=== PATIENT | male | born 1990 | race Two or more races ===

== ENCOUNTER 2020-08-02 00:22 | Inpatient (IN) | payer MEDICAID ==
[~2020-08-02] VITALS: Ht 177.8 cm; Wt 70.4 kg
[2020-08-02] VITALS (19 sets, daily range): BP systolic 98–151; BP diastolic 4–96
--- NOTE | 2020-08-02 00:30 | NUR ---
ED Nurse Note: Patient brought in by ambulance [id number], per EMS patient was found unconcious in seat of car unresponsive. Patient was given Narcan 4mg prior to arrival by EMS. Patient regained consciousness after Narcan but unable to answer any questions or follow commands. Unable to obtain information from patient at this time. Patient noted to be tachycardic 120-140 bpm O2 sat at 88-91% on 15L NRB, tachypneic 30-40 respirations. Patient placed on salesperson handbags upon arrival and changed into gown. EMS inserted 18g Right EJ, patent but unable to draw blood samples. Right AC 18g established, blood drawn and sent to lab with urine.
[2020-08-02] MEDS ORDERED: Naloxone 1mg/ml 2ml ONE (00:38)
[2020-08-02 00:43] LABS: APPEARANCE,URINE CLEAR; BASOPHILS % (AUTO) 1.2 % (0.0-2.0); BILIRUBIN, URINE NEGATIVE (NEGATIVE); COLOR,URINE PALE YELLOW; GLUCOSE, URINE (UA) NEGATIVE (NEGATIVE); HEMATOCRIT 48.1 % (42.0-52.0); HEMOGLOBIN 16.7 G/DL (14.2-18.0); KETONES,URINE NEGATIVE (NEGATIVE); LEUKOCYTE ESTERASE ,URINE NEGATIVE (NEGATIVE); LYMPHOCYTES % (AUTO) 7.6 % (20.0-45.0); MEAN CORPUSCULAR VOLUME 90 FL (80-99); MONOCYTES % (AUTO) 10.4 % (1.0-10.0); NEUTROPHILS % (AUTO) 80.8 % (45.0-75.0); NITRITE,URINE NEGATIVE (NEGATIVE); PH,URINE 7 (4.5-8.0); PLATELET COUNT 224 K/UL (150-450); PROTEIN,URINE NEGATIVE (NEGATIVE); RED BLOOD COUNT 5.37 M/UL (4.70-6.10); RED CELL DISTRIBUTION WIDTH 11.4 % (11.6-14.8); UROBILINOGEN,URINE NORMAL MG/DL (0.0-1.0); WHITE BLOOD COUNT 10.4 K/UL (4.8-10.8)
[2020-08-02] MEDS ORDERED: Naloxone 1mg/ml 2ml IVP ONE ×2 (00:45→01:00)
[2020-08-02 00:53] LABS: ANION GAP 10 mmol/L (5-15); BLOOD UREA NITROGEN 42 mg/dL (7-18); CALCIUM 7.7 MG/DL (8.5-10.1); CARBON DIOXIDE 25 MMOL/L (21-32); CHLORIDE 98 MMOL/L (98-107); POTASSIUM 4.8 MMOL/L (3.5-5.1); SODIUM 133 MMOL/L (136-145)
--- NOTE | 2020-08-02 00:54 | Emergency Room Report ---
History of Present Illness General Chief Complaint: Overdose Source: EMS Present Illness HPI Disclaimer: Please note that this report is being documented using DRAGON technology. This can lead to erroneous entry secondary to incorrect interpretation by the dictating instrument. HPI: Approximately 29-year-old male brought in his Huey Fuentes by [employer] after being found unconscious in the front seat of a car. Suspected overdose he was given Narcan. Unknown if there was an effect. Patient is not providing any history. He is tachycardic and tachypneic though oxygen sats are approximately 88%. 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 EOMI. pupils are approximately 3 mm and reactive bilaterally. Cardiovascular: Tachycardic. S1 and S2 normal. No murmur appreciated Resp: Normal work of breathing. No cough, wheezing or crackles appreciated Abdomen: Abdomen is soft, nondistended. Nontender Skin: Diaphoretic, intact MSK: Normal tone and bulk. Moving all extremities. No obvious deformity. Neuro: Awake, GCS 10 Procedures Critical Care Time Critical Care Time Total critical care time: Approximately 45 minutes Due to a high probability of clinically significant, life threatening deterioration, the patient required the highest level of preparedness to intervene emergently and I personally spent this critical care time directly and personally managing the patient. This critical care time included obtaining a history, examining the patient, pulse oximetry, ordering and reviewing studies, ordering treatments, evaluating response to treatment and updating management plan as needed, frequent reassessment and discussion with other providers as well as arranging for ultimate disposition. This critical to care time was performed to assess and manage the high probability of life-threatening deterioration that could result in multiorgan failure. This critical care time is separate from the separately billable procedures and treating other patients. Medical Decision Making Diagnostic Impression: Primary Impression: Amphetamine abuse Additional Impressions: Pneumonia JULIANA (acute kidney injury) Elevated LFTs Rhabdomyolysis ER Course Approximately 29-year-old Huey Fuentes brought in for altered level of consciousness suspected overdose. Patient placed on nonrebreather. He is tachycardic and tachypneic. Suspected sympathomimetic syndrome though other toxicologic reasons, dehydration, electrolyte abnormalities on the differential. Chest x- ray concerning for right lower lobe pneumonia. CT scan of the head does not show obvious intracranial injury. CT scan of the chest without contrast was performed showing bilateral infiltrates. Lactate and blood cultures were ordered. Patient treated with Zosyn. Will require admission. Sepsis reevaluation: I, Dr. Ted Castañeda, reevaluated the patient Capillary refill: Less than 2 seconds MAP: 90 Heart rate: 120 Respiratory rate: 20 Initial Lactate: 2.4 Repeat Lactate: Pending Pressors: Not indicated No signs of fluid overload 0530 CK returned elevated. LFTs elevated. Continues to receive IV fluid. Mentation improving. He has provided his name but no other identifiers. He is admitted to panel physician, Dr. Madera Laboratory Tests Test 08/02/20 00:21 08/02/20 03:27 08/02/20 03:33 White Blood Count 10.4 K/UL (4.8-10.8) Red Blood Count 5.37 M/UL (4.70-6.10) Hemoglobin 16.7 G/DL (14.2-18.0) Hematocrit 48.1 % (42.0-52.0) Mean Corpuscular Volume 90 FL (80-99) Mean Corpuscular Hemoglobin 31.1 PG (27.0-31.0) H Mean Corpuscular Hemoglobin Concent 34.6 G/DL (32.0-36.0) Red Cell Distribution Width 11.4 % (11.6-14.8) L Platelet Count 224 K/UL (150-450) Mean Platelet Volume 7.2 FL (6.5-10.1) Neutrophils (%) (Auto) 80.8 % (45.0-75.0) H Lymphocytes (%) (Auto) 7.6 % (20.0-45.0) L Monocytes (%) (Auto) 10.4 % (1.0-10.0) H Eosinophils (%) (Auto) 0.0 % (0.0-3.0) Basophils (%) (Auto) 1.2 % (0.0-2.0) Urine Color Pale yellow Urine Appearance Clear Urine pH 7 (4.5-8.0) Urine Specific [place] 1.005 (1.005-1.035) Urine Protein Negative (NEGATIVE) Urine Glucose (UA) Negative (NEGATIVE) Urine Ketones Negative (NEGATIVE) Urine Blood 1+ (NEGATIVE) H Urine Nitrite Negative (NEGATIVE) Urine Bilirubin Negative (NEGATIVE) Urine Urobilinogen Normal MG/DL (0.0-1.0) Urine Leukocyte Esterase Negative (NEGATIVE) Urine RBC 0-2 /HPF (0 - 0) H Urine WBC 0-2 /HPF (0 - 0) Urine Squamous Epithelial Cells Few /LPF (NONE/OCC) Urine Bacteria None /HPF (NONE) Sodium Level 133 MMOL/L (136-145) L Potassium Level 4.8 MMOL/L (3.5-5.1) Chloride Level 98 MMOL/L (98-107) Carbon Dioxide Level 25 MMOL/L (21-32) Anion Gap 10 mmol/L (5-15) Blood Urea Nitrogen 42 mg/dL (7-18) H Creatinine 2.0 MG/DL (0.55-1.30) H Estimated Glomerular Filtration Rate 39.4 mL/min (>60) Glucose Level 174 MG/DL (74-106) H Calcium Level 7.7 MG/DL (8.5-10.1) L Total Bilirubin 0.6 MG/DL (0.2-1.0) Aspartate Amino Transferase (AST) 834 U/L (15-37) H Alanine Aminotransferase (ALT) 1144 U/L (12-78) H Alkaline Phosphatase 81 U/L (46-116) Total Protein 8.1 G/DL (6.4-8.2) Albumin 3.9 G/DL (3.4-5.0) Globulin 4.2 g/dL Albumin/Globulin Ratio 0.9 (1.0-2.7) L Urine Opiates Screen Negative (NEGATIVE) Urine Barbiturates Screen Negative (NEGATIVE) Phencyclidine (PCP) Screen Negative (NEGATIVE) Urine Amphetamines Screen Positive (NEGATIVE) H Urine Benzodiazepines Screen Negative (NEGATIVE) Urine Cocaine Screen Negative (NEGATIVE) Urine Marijuana (THC) Screen Positive (NEGATIVE) H Serum Alcohol < 3 mg/dL Arterial Blood pH 7.254 (7.350-7.450) Arterial Blood Partial Pressure CO2 52.1 mmHg (35.0-45.0) H Arterial Blood Partial Pressure O2 81.0 mmHg (75.0-100.0) Arterial Blood HCO3 22.5 mmol/L (22.0-26.0) Arterial Blood Oxygen Saturation 93.6 % (95-100) L Arterial Blood Base Excess -5.1 (-2-2) L Mario Test Positive Lactic Acid Level Pending Microbiology Date/Time Source Procedure Growth Status 08/02/20 02:30 Nasopharynx SARS-CoV-2 RdRp Gene Assay - Final Complete EKG Diagnostic Results EKG Time: 01:06 Rate: tachycardiac Other Impression Sinus tachycardia, normal axis, normal intervals, no ST segment changes. Irregular baseline makes it difficult to interpret type Rhythm Strip Diag. Results Rhythm Strip Time: 01:06 EP Interpretation: yes Rate: 130s Rhythm: NSR, no PVC's, no ectopy Chest X-Ray Diagnostic Results Chest X-Ray Diagnostic Results : Chest X-Ray Ordered: Yes Indication: Shortness of Breath EP Interpretation: Yes Interpretation: other - Right lower lobe consolidation Impression: Other - Right lower lobe consolidation concerning for pneumonia Electronically Signed by: Electronically signed by Dr. Ted Castañeda CT/MRI/US Diagnostic Results CT/MRI/US Diagnostic Results : Impression Final Report EXAM: CT Head Without Intravenous Contrast CLINICAL HISTORY: AMS TECHNIQUE: Axial computed tomography images of the head/brain without intravenous contrast. CTDI is 53.40 mGy and DLP is 1125.70 mGy-cm. One or more of the following dose reduction techniques were used: automated exposure control, adjustment of the mA and/or kV according to patient size, use of iterative reconstruction technique. COMPARISON: No relevant prior studies available. FINDINGS: No acute intracranial hemorrhage. No midline shift or mass effect. The territorial govea-white matter differentiation is maintained throughout. The ventricles and sulci are commensurate for age. The visualized orbits appear grossly unremarkable. The calvarium is intact. The visualized paranasal sinuses and mastoid air cells are grossly clear. IMPRESSION: No acute intracranial hemorrhage, midline shift, or mass effect. See concomitant chest CT scan where there is extensive infiltrate in the lung bases. Radiologist: Josh Chapin MD Electronically Signed: 08/02/20 03:31 Final Report EXAM: CT Chest Without Intravenous Contrast CLINICAL HISTORY: AMS TECHNIQUE: Axial computed tomography images of the chest without intravenous contrast. CTDI is 8.0 mGy and DLP is 271.60 mGy-cm. One or more of the following dose reduction techniques were used: automated exposure control, adjustment of the mA and/or kV according to patient size, use of iterative reconstruction technique. COMPARISON: No relevant prior studies available. FINDINGS: LUNGS: Severe consolidations at the lung bases consistent with severe multifocal infiltrate. Correlate for aspiration. HEART: Within normal limits. VASCULATURE: Within normal limits without contrast. THYROID: Within normal limits. MEDIASTINUM & LYMPHADENOPATHY: There are no pathologically enlarged mediastinal, hilar, or axillary lymph nodes. SUPERIOR ABDOMEN: The included portions of the superior abdomen are within normal limits. MUSCULOSKELETAL: Within normal limits. IMPRESSION: Severe consolidations at the lung bases consistent with severe multifocal infiltrate. Correlate for aspiration. Radiologist: Josh Chapin MD Electronically Signed: 08/02/20 03:34 Study ready at 03:15 and initial results transmitted at 03:34 Last Vital Signs Date Time Temp Pulse Resp B/P (MAP) Pulse Ox O2 Delivery O2 Flow Rate FiO2 08/02/20 00:23 100.9 145 45 126/63 (84) 90 Non-Rebreather 15.0 Disposition: ADMITTED INPATIENT Condition: Serious Scripts Unable to Obtain Active Prescriptions or Reported Meds Referrals: NOT CHOSEN IPA/,REFERRING (PCP) Ted Castañeda MD Aug 02, 2020 00:54
[2020-08-02 01:02] LABS: ALANINE AMINOTRANSFERASE 1144 U/L (12-78); ALBUMIN 3.9 G/DL (3.4-5.0); ALBUMIN/GLOBULIN RATIO 0.9 (1.0-2.7); ALKALINE PHOSPHATASE 81 U/L (46-116); ASPARTATE AMINO TRANSFERASE 834 U/L (15-37); BILIRUBIN,TOTAL 0.6 MG/DL (0.2-1.0)
[2020-08-02] MEDS ORDERED: LORazepam Inj 2mg/ml 1ml IV ONE ×2 (01:15→02:15)
--- NOTE | 2020-08-02 01:19 | NUR ---
ED Nurse Note: Xray at bedside
--- NOTE | 2020-08-02 02:16 | Diagnostic Imaging Report ---
EXAM: XR Chest, 1 View CLINICAL HISTORY: SOB TECHNIQUE: Frontal view of the chest. COMPARISON: No relevant prior studies available. FINDINGS/IMPRESSION: Consolidation in the right lung base, suspicious for infiltrate. Probable, small right parapneumonic effusion. Follow-up chest radiograph recommended. No pneumothorax. Mildly prominent heart size for the patient's age.
[2020-08-02] MEDS ORDERED: Piperacillin/Tazobactam 3.375 GM in NS 110 ML IVPB ONE (03:15)
--- NOTE | 2020-08-02 03:30 | NUR ---
ED Nurse Note: RT at bedside
--- NOTE | 2020-08-02 03:31 | Diagnostic Imaging Report ---
EXAM: CT Head Without Intravenous Contrast CLINICAL HISTORY: AMS TECHNIQUE: Axial computed tomography images of the head/brain without intravenous contrast. CTDI is 53.40 mGy and DLP is 1125.70 mGy-cm. One or more of the following dose reduction techniques were used: automated exposure control, adjustment of the mA and/or kV according to patient size, use of iterative reconstruction technique. COMPARISON: No relevant prior studies available. FINDINGS: No acute intracranial hemorrhage. No midline shift or mass effect. The territorial govea-white matter differentiation is maintained throughout. The ventricles and sulci are commensurate for age. The visualized orbits appear grossly unremarkable. The calvarium is intact. The visualized paranasal sinuses and mastoid air cells are grossly clear. IMPRESSION: No acute intracranial hemorrhage, midline shift, or mass effect. See concomitant chest CT scan where there is extensive infiltrate in the lung bases.
--- NOTE | 2020-08-02 03:35 | Diagnostic Imaging Report ---
EXAM: CT Chest Without Intravenous Contrast CLINICAL HISTORY: AMS TECHNIQUE: Axial computed tomography images of the chest without intravenous contrast. CTDI is 8.0 mGy and DLP is 271.60 mGy-cm. One or more of the following dose reduction techniques were used: automated exposure control, adjustment of the mA and/or kV according to patient size, use of iterative reconstruction technique. COMPARISON: No relevant prior studies available. FINDINGS: LUNGS: Severe consolidations at the lung bases consistent with severe multifocal infiltrate. Correlate for aspiration. HEART: Within normal limits. VASCULATURE: Within normal limits without contrast. THYROID: Within normal limits. MEDIASTINUM + LYMPHADENOPATHY: There are no pathologically enlarged mediastinal, hilar, or axillary lymph nodes. SUPERIOR ABDOMEN: The included portions of the superior abdomen are within normal limits. MUSCULOSKELETAL: Within normal limits. IMPRESSION: Severe consolidations at the lung bases consistent with severe multifocal infiltrate. Correlate for aspiration.
[2020-08-02 05:33] LABS: CREATINE KINASE 6771 U/L (26-308)
--- NOTE | 2020-08-02 05:56 | NUR ---
ED Nurse Note: Report given to BENNETT Browne.
--- NOTE | 2020-08-02 06:20 | NUR ---
NURSE NOTES: Received pt's report from BENNETT Hinds. Pt is lethargic, open eyes, not able to follow any commend. Pt is on non -breather mask 15 L. SpO2 95%. Pt's belonging list are checked, cannot be signed by pt. Pt's monitoring engineer initiated, sinus tachycardia noted. Pt has a suture on the right calf, blanchable redness on the buttocks. Pt is under care of
--- NOTE | 2020-08-02 06:20 | NUR ---
TRANSFER TO FLOOR: Patient transferred to SDU as ordered, per ERMD. Report given to BENNETT Browne. Patient transported via gurney on ACLS protocol on patient monitor accompanied by RN and machine operator slitter technician in stable condition.
--- NOTE | 2020-08-02 07:00 | NUR ---
RESPIRATORY NOTE: Pt successfully intubated @[address] Montague. ETT 7.5, 23cm at the lip, current settings AC rate 20, VT 480, FiO2 100%, PEEP +5. Suction pt with scant to small amount of trevino/yellow secretions. Alarms are on and audible. Plugged into red outlet. Ambubag at bedside. Will continue to monitor.
--- NOTE | 2020-08-02 07:00 | Emergency Room Report ---
History of Present Illness General Chief Complaint: Overdose Source: Medical Record, EMS Present Illness HPI Approximately 29-year-old male, unknown comorbidities presents with increasing altered mental status, no longer protecting his airway aggravated by drugs alleviated by not taking drugs severity is severe, constant symptoms started unknown, patient became progressively worse I went upstairs to the [facility] unit to intubate patient because his ABG worsened Allergies: Coded Allergies: UNABLE TO ASSESS (Unverified , 08/02/20) patient is not conscious COVID-19 Screening Contact w/high risk pt: No Experienced COVID-19 symptoms?: No COVID-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 Patient History Past Medical History: see triage record Reviewed Nursing Documentation: PMH: Agreed; PSxH: Agreed Nursing Documentation-PMH Past Medical History Deferred: Patient Unconscious Past Medical History: Deferred Review of Systems All Other Systems: limited Physical Exam Vital Signs Date Time Temp Pulse Resp B/P (MAP) Pulse Ox O2 Delivery O2 Flow Rate FiO2 08/02/20 00:23 100.9 145 45 126/63 (84) 90 Non-Rebreather 15.0 Sp02 EP Interpretation: abnormal - Hypoxic General Appearance: severe distress, Stupor Head: normocephalic Eyes: bilateral eye PERRL, bilateral eye EOMI ENT: normal pharynx, dry mucus membranes Neck: full range of motion, supple Respiratory: respiratory distress, decreased breath sounds, accessory muscle use, chest symmetrical Cardiovascular #1: no JVD, tachycardia Gastrointestinal: non tender, soft Neuologic: Unresponsive Skin: warm/dry Procedures Critical Care Time Critical Care Time Given the critical condition in which the patient arrived, the patient was immediately assessed by myself and the nurse, and cardiac monitoring initiated due to the potential for rapid decompensation of the patient's clinical condition. During the course of the patient's stay, I spent a considerable amount of time at the bedside performing serial re-evaluations of the patient's hemodynamic and clinical status because of the recognized potential threat to life or limb in this condition. I then had a chance to review not only all of the available current laboratory and radiographic studies obtained today, but I also reviewed old records available to me at the time. Additionally, any ancillary information available including oracle applications analyst records were reviewed. Sequential vital signs were obtained. Critical Care time of 30minutes was performed exclusive of billable procedures. Intubation Intubation : Consent: Emergent Time of Intubation: 06:59 Intubation Method: orotracheal Tube Size (cm): 7.5 Medications: Etomidate, Rocuronium Breath Sounds after Intubation: equal Intubation Complications: no complications Post Intubation Xray: Yes Progress/Xray Impression: ETT well seated Attempts: One Patient Tolerated: Well Complications: None Medical Decision Making Diagnostic Impression: Primary Impression: Amphetamine abuse Additional Impressions: Rhabdomyolysis Elevated LFTs JULIAAN (acute kidney injury) Pneumonia ER Course Patient with increasing altered mental status worsening blood gas, patient was emergently intubated, vent settings were titrated per [facility] Net protocol Patient transferred to ICU Laboratory Tests Test 08/02/20 00:20 08/02/20 00:21 08/02/20 03:27 08/02/20 03:33 Total Creatine Kinase 6771 U/L (26-308) H Salicylates Level 0.9 ug/mL (2.8-20) L Acetaminophen Level < 2 MCG/ML (10-30) L White Blood Count 10.4 K/UL (4.8-10.8) Red Blood Count 5.37 M/UL (4.70-6.10) Hemoglobin 16.7 G/DL (14.2-18.0) Hematocrit 48.1 % (42.0-52.0) Mean Corpuscular Volume 90 FL (80-99) Mean Corpuscular Hemoglobin 31.1 PG (27.0-31.0) H Mean Corpuscular Hemoglobin Concent 34.6 G/DL (32.0-36.0) Red Cell Distribution Width 11.4 % (11.6-14.8) L Platelet Count 224 K/UL (150-450) Mean Platelet Volume 7.2 FL (6.5-10.1) Neutrophils (%) (Auto) 80.8 % (45.0-75.0) H Lymphocytes (%) (Auto) 7.6 % (20.0-45.0) L Monocytes (%) (Auto) 10.4 % (1.0-10.0) H Eosinophils (%) (Auto) 0.0 % (0.0-3.0) Basophils (%) (Auto) 1.2 % (0.0-2.0) Urine Color Pale yellow Urine Appearance Clear Urine pH 7 (4.5-8.0) Urine Specific [place] 1.005 (1.005-1.035) Urine Protein Negative (NEGATIVE) Urine Glucose (UA) Negative (NEGATIVE) Urine Ketones Negative (NEGATIVE) Urine Blood 1+ (NEGATIVE) H Urine Nitrite Negative (NEGATIVE) Urine Bilirubin Negative (NEGATIVE) Urine Urobilinogen Normal MG/DL (0.0-1.0) Urine Leukocyte Esterase Negative (NEGATIVE) Urine RBC 0-2 /HPF (0 - 0) H Urine WBC 0-2 /HPF (0 - 0) Urine Squamous Epithelial Cells Few /LPF (NONE/OCC) Urine Bacteria None /HPF (NONE) Sodium Level 133 MMOL/L (136-145) L Potassium Level 4.8 MMOL/L (3.5-5.1) Chloride Level 98 MMOL/L (98-107) Carbon Dioxide Level 25 MMOL/L (21-32) Anion Gap 10 mmol/L (5-15) Blood Urea Nitrogen 42 mg/dL (7-18) H Creatinine 2.0 MG/DL (0.55-1.30) H Estimated Glomerular Filtration Rate 39.4 mL/min (>60) Glucose Level 174 MG/DL (74-106) H Calcium Level 7.7 MG/DL (8.5-10.1) L Total Bilirubin 0.6 MG/DL (0.2-1.0) Aspartate Amino Transferase (AST) 834 U/L (15-37) H Alanine Aminotransferase (ALT) 1144 U/L (12-78) H Alkaline Phosphatase 81 U/L (46-116) Total Protein 8.1 G/DL (6.4-8.2) Albumin 3.9 G/DL (3.4-5.0) Globulin 4.2 g/dL Albumin/Globulin Ratio 0.9 (1.0-2.7) L Urine Opiates Screen Negative (NEGATIVE) Urine Barbiturates Screen Negative (NEGATIVE) Phencyclidine (PCP) Screen Negative (NEGATIVE) Urine Amphetamines Screen Positive (NEGATIVE) H Urine Benzodiazepines Screen Negative (NEGATIVE) Urine Cocaine Screen Negative (NEGATIVE) Urine Marijuana (THC) Screen Positive (NEGATIVE) H Serum Alcohol < 3 mg/dL Arterial Blood pH 7.254 (7.350-7.450) Arterial Blood Partial Pressure CO2 52.1 mmHg (35.0-45.0) H Arterial Blood Partial Pressure O2 81.0 mmHg (75.0-100.0) Arterial Blood HCO3 22.5 mmol/L (22.0-26.0) Arterial Blood Oxygen Saturation 93.6 % (95-100) L Arterial Blood Base Excess -5.1 (-2-2) L Mario Test Positive Lactic Acid Level 2.40 mmol/L (0.4-2.0) H Test 08/02/20 05:00 08/02/20 05:59 Lactic Acid Level 3.50 mmol/L (0.66-2.22) H Arterial Blood pH 7.243 (7.350-7.450) Arterial Blood Partial Pressure CO2 61.5 mmHg (35.0-45.0) *H Arterial Blood Partial Pressure O2 71.8 mmHg (75.0-100.0) L Arterial Blood HCO3 25.9 mmol/L (22.0-26.0) Arterial Blood Oxygen Saturation 91.6 % (95-100) L Arterial Blood Base Excess -2.7 (-2-2) L Mario Test Positive Microbiology Date/Time Source Procedure Growth Status 08/02/20 02:30 Nasopharynx SARS-CoV-2 RdRp Gene Assay - Final Complete Last Vital Signs Date Time Temp Pulse Resp B/P (MAP) Pulse Ox O2 Delivery O2 Flow Rate FiO2 08/02/20 06:20 99.5 119 22 117/76 95 Non-Rebreather 15.0 Disposition: ADMITTED INPATIENT Condition: Critical Scripts Unable to Obtain Active Prescriptions or Reported Jacinto Johnson MD Aug 02, 2020 07:00
[2020-08-02] MEDS ORDERED: LORazepam Inj 2mg/ml 1ml IV PRN ×2 (07:15→11:00)
--- NOTE | 2020-08-02 07:20 | NUR ---
TRANSFER TO FLOOR: Patient transferred to [ICU] right after pt admitted to SDU. Report given to [Refugio]. Belongings given to [Refugio]. Pt is transferred to ICU after ET tube intubated at SDU.
--- NOTE | 2020-08-02 07:21 | NUR ---
NURSE NOTES: Received patient from Hollie GUAJARDO. Patient is alert and oriented x0, reacts to light pain. Sinus Tachycardia on the heart monitor, HR 113. Receiving oxygen via ET Tube 7.5 23cm, vent settings: AC 20, TV 480, FiO2 100%, PEEP 5. IV site is right EJ 18g and Left AC 18g both patent and intact. Bed is locked, placed in lowest position, side rails up x3, bed alarm on, head of bed elevated, call light within reach. Will continue to monitor.
[2020-08-02] MEDS ORDERED: Sodium Bicarbonate 50 ML in D5 1/2NS 1,000 ML IV SCH ×2 (08:15→10:30)
[2020-08-02] MEDS ORDERED: Vancomycin 1.5gm/NS Premix IVPB ONE ×2 (08:30→10:00)
--- NOTE | 2020-08-02 08:40 | NUR ---
NURSE NOTES: Flores catheter inserted on patient, 600ml of urine output noted.
[2020-08-02] MEDS: Pantoprazole Inj IVP SCH (09:10)
[2020-08-02] MEDS: Heparin 5000 units/ml inj SUBQ SCH ×2 (09:11→20:06)
[2020-08-02] MEDS ORDERED: Piperacillin/Tazobactam 3.375 GM in NS 110 ML IVPB SCH (10:30)
--- NOTE | 2020-08-02 10:57 | NUR ---
NURSE NOTES: Patient's ET Tube placed at 21cm at the lip line by RT.
--- NOTE | 2020-08-02 11:10 | NUR ---
RD ASSESSMENT & RECOMMENDATIONS SEE CARE ACTIVITY FOR COMPLETE ASSESSMENT DAILY ESTIMATED NEEDS: Needs based on critical care, 72.7kg 22-28 kcals/kg 0729-3575 total kcals 1.2-2 g protein/kg 87-145 g total protein 25-30 mL/kg 5662-3068 total fluid mLs NUTRITION DIAGNOSIS: Swallowing difficulty related respiratory failure as evidenced by pt now intubated, critical ABG. CURRENT TF: NPO ENTERAL NUTRITION RECOMMENDATIONS: As able, rec Glucerna 1.5 goal of 50ml/hr x24 hrs to provide 1200ml, 1800 kcal, 99g pro, 911ml free H2O - As medically able, obtain GI access, initiate Glucerna 1.5 @20ml/hr for 6 hsrs. - Advance as tolerated 15ml/hr q4-6 hrs to goal - Flush per MD. HOB over 30 degrees ADDITIONAL RECOMMENDATIONS: 1) TF recs as above as medically able 2) Obtain HgA1C 3) Re-calibrate bed scale for accurate CBW 4) BG Ashleigh w/ TF's
[2020-08-02] MEDS: LORazepam Inj 2mg/ml 1ml IV PRN ×4 (11:57→23:12)
[2020-08-02] MEDS: Piperacillin/Tazobactam 3.375 GM in NS 110 ML IVPB SCH ×2 (11:57→20:05)
[2020-08-02] MEDS: D5NS 1,000 ML IV SCH ×2 (12:13→19:04)
[2020-08-02] MEDS ORDERED: Rocuronium Bromide 50mg/5ml Inj IV ONE (12:32)
[2020-08-02] MEDS ORDERED: Etomidate 40mg/20ml Inj IV ONE (12:32)
[2020-08-02] MEDS ORDERED: Folic Acid 1 MG, Magnesium Sulfate 2,000 MG, Multivitamin - 12 Injection 10 ML in Sodiu... IV SCH (13:00)
[2020-08-02] MEDS ORDERED: Thiamine 100mg in D5W 55ml IVPB SCH (13:00)
--- NOTE | 2020-08-02 13:38 | NUR ---
NURSE NOTES: Patient is resting in bed, sinus tachycardia on the heart monitor, HR 115. Blood pressure reads 101/70, O2 saturation at 100%.
--- NOTE | 2020-08-02 13:45 | Diagnostic Imaging Report ---
Procedure: XRAY Chest 1v Reason for study: Status post intubation. Comparison films: 917. FINDINGS: There is a new endotracheal tube in place with the tip approximately 2.3 cm above the alma rosa. Vascularity is normal. There is worsening of bibasilar alveolar disease. Cardiac and mediastinal silhouette are within normal limits. Bilateral effusions also noted right greater than left. The bony thorax appear unremarkable. IMPRESSION: New endotracheal tube in place. Tip is 2.3 cm above the alma rosa. Bibasilar infiltrates and effusions right greater than left.
--- NOTE | 2020-08-02 14:36 | Diagnostic Imaging Report ---
Indication: Respiratory failure. Endotracheal tube. Technique: Portable AP view of the chest. Comparison: Earlier the same day. FINDINGS/IMPRESSION: Endotracheal tube has been retracted. The tip is now at the level of the inferior margin of the clavicles, approximately 6.5 cm above the alma rosa. Additional findings not significantly changed compared to exam earlier today allowing for differences in technique/positioning.
--- NOTE | 2020-08-02 15:37 | NUR ---
CASE MANAGEMENT:REVIEW BIBA FROM CAR. CC; FOUND UNCONSCIOUS SI:PNA. RHABDOMYOLYSIS. JULIANA AMPHETAMINE ABUSE 101.0 145 45 126/63 90% ON 15L NON REBREATHER TCK+6771 BUN+42 CR+2.0 IS: IV NARCAN X2 1L NS BOLUS IV ATIVAN X2 IV ZOSYN CT HEAD/CHEST CHEST XRAY : TO STEPDOWN UNIT...LATER TRANSFERRED TO ICU
--- NOTE | 2020-08-02 16:42 | NUR ---
NURSE NOTES: Placed Optifoam under [place] Fast with RT as preventative measure for pressure ulcer.
--- NOTE | 2020-08-02 17:23 | NUR ---
NURSE NOTES: Left Nares NGT placed, 65cm. KUB to confirm placement ordered.
--- NOTE | 2020-08-02 18:28 | Diagnostic Imaging Report ---
EXAM: XR Abdomen, 2 Views CLINICAL HISTORY: NGT TECHNIQUE: Frontal view of the abdomen/pelvis with upright view of the abdomen. COMPARISON: Same-day CT chest FINDINGS: Lower thorax: Bilateral medial dependent consolidations better evaluated on same-day CT. Intraperitoneal space: No free air. Gastrointestinal tract: Nonobstructive bowel gas pattern. Bones/joints: Unremarkable. Tubes, lines and devices: Enteric tube with tip and proximal sideport below the gastroesophageal junction. IMPRESSION: 1. Enteric tube with tip and proximal sideport below the gastroesophageal junction. 2. Bilateral medial dependent consolidations better evaluated on same- day CT. 3. Nonobstructive bowel gas pattern.
--- NOTE | 2020-08-02 18:45 | NUR ---
NURSE NOTES: KUB Xray confirmed placement of NGT.
--- NOTE | 2020-08-02 19:21 | NUR ---
NURSE HAND-OFF REPORT: Latest Vital Signs: Temperature 99.6 , Pulse 122 , B/P 100 /52 , Respiratory Rate 17 , O2 SAT 94 , Endotracheal Tube, O2 Flow Rate 15.0 . Vital Sign Comment: EKG Rhythm: Sinus Tachycardia Rhythm change?: N MD Notified?: N - MD Response: Latest Lozoya Fall Score: 60 Fall Risk: High Risk Safety Measures: Call light Within Reach, Bed Alarm Zone 1, Side Rails Side Rails x3, Bed position Low and Locked. Fall Precautions: Door Sign Patient Fall Education Report given to Kevyn GUAJARDO.
--- NOTE | 2020-08-02 19:30 | NUR ---
NURSE NOTES: SBAR was received from Austyn RN. Patient is orally intubated earlier today due to worsening mentation and worsening ABG results. Right now patient is orally intubated with ETT 7.5 and 21cm at the lower lip. Current settings are as follows: Ac 20, 480tv, 50% Fio2 and peep of 5. CXR checked and confirms placement. Pupils noted to be pin pointed bilaterally with minimal reactivity to pen light. Patient is responsive to deep stimulation with sudden movements but is AAOX0 at this time. There is a L nare NGT, Flores catheter noted and hanging below bladder, bilateral soft wrist restraints for safety, Peripheral IV lines noted including a R EJ which is patent and intact. Both IV lines are 18g. HR is 122 ST, 112/62, SpO2 is 99% RR is 20, temperature is 99.7F (ax0. Ventilator and airway safety checks performed, all other safety measures are in place, will continue to monitor.
[2020-08-02] MEDS: Acetaminophen 650mg/20.3ml NG PRN (20:05)
--- NOTE | 2020-08-02 20:05 | NUR ---
NURSE NOTES: Patients mentation remains the same, does not follow command, easily agitated with stimulation, slow to respond, pin point pupils about 2mm bilaterally with sluggish response bilaterally . HR is 122. Patient noted to have temperature of 100.5F (ax). Patient was given Tylenol 650mg via NGT in addition to cooling measures. Ativan 2mg IVP was also given because patient is agitated. Range of motion offered. Oral care provided and suctioned. Alot of deep ETT secretions noted, white/clear and very thick. Repositioned patient for comfort. Blood pressures within normotensive ranges. FiO2 at 50%. Will continue to monitor.
--- NOTE | 2020-08-02 20:38 | NUR ---
NURSE NOTES: Reassessment of temperature noted to be 100.3F (ax), cooling measure continues. Patient is calm now and not agitated. Vitals remains stable at this time, remains in ST at 115, no dysrhythmias or ectopic changes noted on monitoring specialist. Flores care performed. Suctioned patient.
--- NOTE | 2020-08-02 21:44 | NUR ---
NURSE NOTES: Repositioned patient. Suctioned patient. Airway and ventilator safety check performed. NAD at this time. 96/50, 97% Spo2 , HR is 115 ST. RR 20
[2020-08-03] VITALS (24 sets, daily range): BP systolic 99–158; BP diastolic 50–100
--- NOTE | 2020-08-03 | NUR ---
NURSE NOTES: Patient was given oral care and suctioned. Patient sometimes able to knod provide hand jesters when given question. Cooling measures still continue, current temperature 99.5F and warm to touch. Range of motion given. Vitals remains stable. Repositioned
--- NOTE | 2020-08-03 00:59 | History and Physical Report ---
DATE OF ADMISSION: 08/02/2020 REASON FOR ADMISSION: Respiratory failure. HISTORY OF PRESENT ILLNESS: This is a 29-year-old male. He was found unconscious by [employer] in the front of his car. He was given Narcan without apparent effect. The patient was brought into the emergency room and was found to be tachypneic, tachycardic, and hypoxic. He ultimately developed worsening acidosis and required intubation and mechanical ventilation upon admission to the intensive care unit. PAST MEDICAL HISTORY: None known. FAMILY HISTORY: Not obtainable. SOCIAL HISTORY: Not obtainable. MEDICATIONS: Unclear whether he takes medications. PHYSICAL EXAMINATION: VITAL SIGNS: Temperature 100.9, blood pressure 126/63, heart rate 145, and respiratory rate 45 on presentation. Subsequently, following intubation, blood pressure 99/68, heart rate 114, respiratory rate 19. HEENT: Poorly responsive. Moves all extremities. CARDIAC: Regular rhythm. Rapid rate. Normal S1, S2 with no murmur. LUNGS: Bilateral rhonchi. NECK: Thin ET tube secretions. EXTREMITIES: No edema. SKIN: No skin rash or breakdown. LABORATORY AND DIAGNOSTIC DATA: Sodium 133, potassium 4.8, bicarb 25, BUN 42, creatinine 2.0, glucose 174. Lactic acid 2.4. AST, ALT 834/1144, alkaline phosphatase 81. CK 6771. Albumin 3.9. Calcium 7.7. ABG pre intubation 7.29, 54, 106. Urinalysis, no active sediment. Chest x-ray, endotracheal tube now localized appropriately, bilateral effusions noted, and alveolar diseases. Toxicology screen was positive for amphetamines, marijuana. IMPRESSION: 1. Amphetamine overdose. 2. Respiratory failure. 3. Aspiration pneumonia. 4. Acute respiratory acidosis. 5. Lactic acidosis. 6. Possible anoxic encephalopathy. PLAN: 1. Plan of care reviewed and discussed with ICU team. 2. Orders written. 3. Condition remains critical with guarded prognosis. Colton Madera M.D. DR: CARSON JOB#: [id number] CC:
[2020-08-03] MEDS: D5NS 1,000 ML IV SCH ×4 (01:14→21:03)
--- NOTE | 2020-08-03 01:39 | NUR ---
NURSE NOTES: Sputum cx collected and sent to lab
--- NOTE | 2020-08-03 02:00 | NUR ---
NURSE NOTES: Patient repositioned, oral care and suctioning provided. Patient remains calm and sedated. Vitals remain stable. Patient continues to have low grade fevers, cooling measures ongoing. Patient can respond sometimes with head and hand jesters when given a command. HR is 107ST 100/50, Spo2 at 100% -40% Fio2.
[2020-08-03] MEDS: LORazepam Inj 2mg/ml 1ml IV PRN ×5 (03:06→20:59)
--- NOTE | 2020-08-03 04:00 | NUR ---
NURSE NOTES: Patient given bed bath and oral care. Flores care performed. Suctioned patient. Blood drawn and taken to lab. Remains sleeping and calm. warm to touch, latest temperature is 99.8F, cooling measures ongoing. other vitals remain stable. Will continue to monitor.
[2020-08-03 04:52] LABS: BASOPHILS % (AUTO) 0.6 % (0.0-2.0); EOSINOPHILS % (AUTO) 0.6 % (0.0-3.0); HEMATOCRIT 34.6 % (42.0-52.0); HEMOGLOBIN 11.7 G/DL (14.2-18.0); LYMPHOCYTES % (AUTO) 9.7 % (20.0-45.0); MEAN CORPUSCULAR VOLUME 90 FL (80-99); MONOCYTES % (AUTO) 7.1 % (1.0-10.0); NEUTROPHILS % (AUTO) 81.9 % (45.0-75.0); PLATELET COUNT 138 K/UL (150-450); RED BLOOD COUNT 3.85 M/UL (4.70-6.10); RED CELL DISTRIBUTION WIDTH 11.6 % (11.6-14.8); WHITE BLOOD COUNT 7.3 K/UL (4.8-10.8)
[2020-08-03 05:17] LABS: ALANINE AMINOTRANSFERASE 1284 U/L (12-78); ALBUMIN 2.3 G/DL (3.4-5.0); ALKALINE PHOSPHATASE 58 U/L (46-116); ANION GAP 4 mmol/L (5-15); ASPARTATE AMINO TRANSFERASE 579 U/L (15-37); BILIRUBIN,DIRECT 0.2 MG/DL (0.0-0.3); BILIRUBIN,TOTAL 0.7 MG/DL (0.2-1.0); BLOOD UREA NITROGEN 9 mg/dL (7-18); CALCIUM 7.5 MG/DL (8.5-10.1); CARBON DIOXIDE 30 MMOL/L (21-32); CHLORIDE 108 MMOL/L (98-107); CREATINE KINASE 5580 U/L (26-308); CREATININE 0.8 MG/DL (0.55-1.30); POTASSIUM 4.1 MMOL/L (3.5-5.1); SODIUM 142 MMOL/L (136-145)
[2020-08-03] MEDS: Piperacillin/Tazobactam 3.375 GM in NS 110 ML IVPB SCH ×3 (05:43→21:04)
[2020-08-03] MEDS: Acetaminophen 650mg/20.3ml NG PRN (05:54)
--- NOTE | 2020-08-03 05:54 | NUR ---
NURSE NOTES: Temperature noted to be 101F (ax). Tylenol 650mg via NGT given and cooling measures given.
[2020-08-03] MEDS: Vancomycin 1gm/D5W 275ml IVPB SCH ×6 (06:10→21:02)
--- NOTE | 2020-08-03 06:24 | NUR ---
NURSE NOTES: Received call from Microbiology informing that patient is positive for gram negative cocci. Patient currently is already receiving Vancomycin and Zosyn. notified.
--- NOTE | 2020-08-03 07:17 | NUR ---
NURSE HAND-OFF REPORT: Latest Vital Signs: Temperature 100.4 , Pulse 108 , B/P 107 /55 , Respiratory Rate 20 , O2 SAT 99 , Mechanical Ventilator, Vital Sign Comment: Stable EKG Rhythm: Sinus Tachycardia Rhythm change?: N MD Notified?: N - MD Response: Latest Lozoya Fall Score: 60 Fall Risk: High Risk Safety Measures: Call light Within Reach, Bed Alarm Zone 2, Side Rails Side Rails x3, Bed position Low and Locked. Fall Precautions: Door Sign Patient Fall Education Report given to Rosalinda GUAJARDO
--- NOTE | 2020-08-03 07:18 | NUR ---
NURSE NOTES: Report and pt received from BENNETT Bagley. Pt appears lethargic but somewhat restless, kicking his legs around. Pt is orally intubated; ETT 7.5, 21cm @ the lipline. Settings: AC 20, TV 480, FiO2 50%, PEEP 5. Pt has a Lt nares NGT; pt is currently NPO. Pt has a stephenson catheter intact and draining to urometer. PIV Rt EJ #18g and Lt AC #18g noted and patent, running D5NS @ 150mL/hr. Pt received and maintained on BL wrist restraints for safety. Bed locked and in lowest position, with call light within reach. Will continue to monitor.
[2020-08-03] MEDS: Pantoprazole Inj IVP SCH (08:19)
[2020-08-03] MEDS: Heparin 5000 units/ml inj SUBQ SCH ×2 (08:21→20:59)
--- NOTE | 2020-08-03 08:45 | NUR ---
NURSE NOTES: Pt self extubated, despite being on 2 point wrist restraints. Pt was put on a non rebreather, 15L. ABG will be done.
--- NOTE | 2020-08-03 08:46 | NUR ---
NURSE NOTES: Pt also pulled out NGT.
--- NOTE | 2020-08-03 08:49 | NUR ---
WET COTTON FEEDER NOTE Pt is currently intubated. Pt does not appear to be stable to conduct psychosocial assessment. SW will attempt when pt is more stable to participate. Per chart review, pt is transient. The emergency contact is his friend, Vinny Escalante [phone]. SW left a vm to Vinny Escalante for call back. RUDS positive for amphetamine and THC. SW will continue to F/U.
--- NOTE | 2020-08-03 09:30 | NUR ---
NURSE NOTES: ABG resulted. Dr Madera notified of extubation and of results. Pt placed on 3L NC. No new orders given. Will continue to monitor.
--- NOTE | 2020-08-03 10:00 | NUR ---
NURSE NOTES: Pt remains on 3L NC, tolerating well. O2sat 100%. Will monitor pt after extubation, as advised by Dr Madera.
--- NOTE | 2020-08-03 10:45 | NUR ---
NURSE NOTES: Pt remains on 2 point wrist restraints d/t agitation and attempting to pull out medically necessary tubing. Diversional activities attempted to no avail.
--- NOTE | 2020-08-03 11:05 | NUR ---
NURSE NOTES: Ativan 2MG IVP given for agitation and restlessness.
--- NOTE | 2020-08-03 12:45 | NUR ---
NURSE NOTES: Pt's boyfriend, Vinny, called the unit. Updated him on pt's current condition. Said he will visit at 4pm.
--- NOTE | 2020-08-03 13:14 | NUR ---
CASE MANAGEMENT:REVIEW 08/03/20 SI: AMPHETAMINE OVERDOSE.RESPIRATORY FAILURE. ASPIRATION PNA. POSS ANOXIC ENCEPHALOPATHY INTUBATED-->EXTUBATED-->NON REBREATHER 100.4 112 20 117/66 99% ON VENT SUPPORT TCK+5580 IS: IV VANCOMYCIN Q8HRS IV ZOSYN Q8HRS IVF@150/HR HEPARIN SQ Q12 IV PROTONIX QD : ICU STATUS
--- NOTE | 2020-08-03 14:00 | NUR ---
NURSE NOTES: Pt turned and repositioned. Pt remains restless, kicking his legs around and sliding down in the bed.
--- NOTE | 2020-08-03 15:00 | NUR ---
NURSE NOTES: Lt AC PIV removed d/t leaking. New PIV Lt FA #18g and Rt AC #18g inserted.
--- NOTE | 2020-08-03 16:45 | NUR ---
NURSE NOTES: Pt's boyfriend came by to visit. Updated him on pt's current condition. Pt repositioned in bed as he continues to be restless and moves around a lot.
--- NOTE | 2020-08-03 18:15 | NUR ---
NURSE NOTES: Pt fully cleaned and linens changed. Pt remains restless, confused, and disorientated. No distress noted. Pt remains on 3L NC.
--- NOTE | 2020-08-03 18:45 | NUR ---
NURSE NOTES: Pt appears somewhat tachypneic, in the 30's. O2Sat 98% STAT ABG ordered to evaluate respiratory status.
--- NOTE | 2020-08-03 19:04 | NUR ---
NURSE HAND-OFF REPORT: Latest Vital Signs: Temperature 99.1 , Pulse 111 , B/P 153 /97 , Respiratory Rate 33 , O2 SAT 98 , Nasal Cannula, O2 Flow Rate 3.0 . Vital Sign Comment: EKG Rhythm: Sinus Tachycardia Rhythm change?: N MD Notified?: N - MD Response: Latest Lozoya Fall Score: 60 Fall Risk: High Risk Safety Measures: Call light Within Reach, Bed Alarm Zone 2, Side Rails Side Rails x3, Bed position Low and Locked. Fall Precautions: Door Sign Patient Fall Education Report given to BENNETT Bagley.
--- NOTE | 2020-08-03 19:30 | NUR ---
NURSE NOTES: Patient received Rosalinda RN. Patient is awake, lethargic and very somnolent and sometimes confused. Currently on 3L NC and saturating at 100%. Patient is on bilateral soft wrist restraints. Pulses noted and present, skin intact, Peripheral IV lines are present and is patent and intact. D5NS at 150 infusing. Safety measure checked. Fall risk assessment protocol in place. Bed locked and alarm engaged.
--- NOTE | 2020-08-03 20:00 | NUR ---
NURSE NOTES: Patient noted to have temperature of 100.3F HR is 112 ST, blood pressure is stable. Patient gets slightly restless and attempts to get out of bed. Patient noted to sometimes be hallucinating and states he is hearing voices and seeing things. Patient can follow commands and answers questions back to me but will not remember follow-up questions. Hob at 45 degrees. Patient stating that he is thirsty and would like something to drink. Patient also stated, " Do I look like a fool that would do drugs". Patient later stated that admits to using recreational methamphetamines and marijuana.
[2020-08-03] MEDS ORDERED: NS 275ml ONE (20:05)
[2020-08-03] MEDS ORDERED: D5NS 1000ml IV ONE (20:05)
[2020-08-03] MEDS ORDERED: Tubing IV Secondary IV ONE (20:05)
--- NOTE | 2020-08-03 22:00 | NUR ---
NURSE NOTES: Patient given cooling measures. Blood pressure and and HR remains stable. patient is semi-fowlers at 45-50 degree positioning. Patient was given cold water, swallowed well without any incident. No cough or distress noted. Patient follows conversation but sometimes rambles off conversation about other unrelated topics. Patient less restless than before. Vitals remain stable. HR is [address] and BP is 121/75. SPO2 is 100% while on Nasal Canula. Still somnolent and lethargic.
[2020-08-04] VITALS (21 sets, daily range): BP systolic 115–155; BP diastolic 70–115
--- NOTE | 2020-08-04 | NUR ---
NURSE NOTES: Patient is agitated and restless. Patient attempt to get out of bed. Reality reorientation was provided but to some effect. Patient verbalizes discussion unrelated to topics. Patient is talkative and yelling. Patient was given water, patient can swallow well with no cough. Tylenol was also given cause patient has temperature of 101 (orally). Urine is dark erika in color.
[2020-08-04] MEDS: LORazepam Inj 2mg/ml 1ml IV PRN ×5 (00:05→21:02)
[2020-08-04] MEDS ORDERED: Acetaminophen 650mg/20.3ml ORAL PRN (00:15)
--- NOTE | 2020-08-04 02:00 | NUR ---
NURSE NOTES: Cooling measures given. Patient confused at times, talking to self and to me about unrelated topics. Patient sometimes gets agitated and tries to get out of bed. Patient is too lethargic and somnolent to stand, high fall risk at this time. Educated patient about surroundings, reality reorientation provided. NAD at this time. Vitals stable, No respiratory depression or distress.
--- NOTE | 2020-08-04 02:10 | Cardiology Progress Note ---
Subjective DATE OF SERVICE: Aug 03, 2020 Febrile +blood cultures with gm pos cocci Episodes of agitation Objective Last 24 Hour Vital Signs Date Time Temp Pulse Resp B/P (MAP) Pulse Ox O2 Delivery O2 Flow Rate FiO2 08/04/20 01:00 94 26 123/80 (94) 100 08/04/20 00:36 100.6 08/04/20 00:35 85 23 123/80 100 08/04/20 00:07 94 08/04/20 00:05 111 30 155/96 95 08/04/20 00:00 Nasal Cannula 3.0 Nasal Cannula 3.0 08/04/20 00:00 101.0 111 30 155/96 (115) 95 08/03/20 23:00 115 26 124/85 (98) 99 08/03/20 22:00 102 30 121/75 (90) 100 08/03/20 21:29 105 20 124/79 100 08/03/20 21:00 107 34 124/79 (94) 97 08/03/20 20:59 111 33 153/97 100 08/03/20 20:00 106 08/03/20 20:00 100.2 116 32 155/100 (118) 98 08/03/20 20:00 Nasal Cannula 3.0 Nasal Cannula 3.0 08/03/20 19:24 100 Nasal Cannula 3.0 32 08/03/20 19:00 111 33 153/97 (115) 98 08/03/20 18:00 122 29 158/86 (110) 96 08/03/20 17:00 104 29 144/91 (108) 100 08/03/20 16:00 Nasal Cannula 3.0 Nasal Cannula 3.0 08/03/20 16:00 123 08/03/20 16:00 99.1 106 33 140/86 (104) 98 08/03/20 15:00 107 24 130/83 (99) 99 08/03/20 14:00 109 28 149/92 (111) 99 08/03/20 13:00 102 28 138/86 (103) 95 08/03/20 12:00 101 08/03/20 12:00 98.8 106 21 142/86 (104) 98 08/03/20 12:00 Nasal Cannula 3.0 Nasal Cannula 3.0 08/03/20 11:31 104 18 121/75 100 08/03/20 11:01 96 21 121/75 100 08/03/20 11:00 98 21 121/75 (90) 100 08/03/20 10:05 100 Nasal Cannula 3.0 32 08/03/20 10:00 112 20 127/73 (91) 95 08/03/20 09:00 107 21 115/68 (84) 100 08/03/20 09:00 3.0 08/03/20 08:58 Non-Rebreather 15.0 100 08/03/20 08:51 110 25 115/68 100 08/03/20 08:21 108 20 117/66 97 08/03/20 08:00 Mechanical Ventilator 08/03/20 08:00 100.4 108 20 117/66 (83) 99 08/03/20 08:00 40 08/03/20 08:00 116 08/03/20 07:04 108 20 40 08/03/20 07:00 100.4 108 20 107/55 (72) 99 08/03/20 06:25 18 113/61 100 08/03/20 06:25 100.4 08/03/20 06:12 105 22 08/03/20 06:00 101.0 109 21 113/61 (78) 98 08/03/20 05:53 115 20 103/55 100 08/03/20 05:00 104 19 103/55 (71) 99 08/03/20 04:00 40 08/03/20 04:00 99.8 105 20 106/55 (72) 99 08/03/20 04:00 Mechanical Ventilator 08/03/20 03:36 104 20 105/55 100 08/03/20 03:11 108 08/03/20 03:06 110 20 117/62 97 08/03/20 03:00 108 20 100/50 (67) 98 08/03/20 02:35 110 20 40 HEENT: normal ENT inspection LUNGS: bilateral rhonchi CARDIAC: normal rate, regular rhythm, normal S1 and S2 ABDOMEN: normal bowel sounds, non tender, soft, no organomegaly, no mass EXTREMITIES: normal range of motion, non-tender, normal inspection, No edema Laboratory Tests Test 08/03/20 03:40 08/03/20 09:20 08/03/20 18:57 White Blood Count 7.3 K/UL (4.8-10.8) Red Blood Count 3.85 M/UL (4.70-6.10) L Hemoglobin 11.7 G/DL (14.2-18.0) L Hematocrit 34.6 % (42.0-52.0) L Mean Corpuscular Volume 90 FL (80-99) Mean Corpuscular Hemoglobin 30.4 PG (27.0-31.0) Mean Corpuscular Hemoglobin Concent 33.8 G/DL (32.0-36.0) Red Cell Distribution Width 11.6 % (11.6-14.8) Platelet Count 138 K/UL (150-450) L Mean Platelet Volume 6.4 FL (6.5-10.1) L Neutrophils (%) (Auto) 81.9 % (45.0-75.0) H Lymphocytes (%) (Auto) 9.7 % (20.0-45.0) L Monocytes (%) (Auto) 7.1 % (1.0-10.0) Eosinophils (%) (Auto) 0.6 % (0.0-3.0) Basophils (%) (Auto) 0.6 % (0.0-2.0) Sodium Level 142 MMOL/L (136-145) Potassium Level 4.1 MMOL/L (3.5-5.1) Chloride Level 108 MMOL/L (98-107) H Carbon Dioxide Level 30 MMOL/L (21-32) Anion Gap 4 mmol/L (5-15) L Blood Urea Nitrogen 9 mg/dL (7-18) Creatinine 0.8 MG/DL (0.55-1.30) # Estimat Glomerular Filtration Rate > 60 mL/min (>60) Glucose Level 149 MG/DL (74-106) H Calcium Level 7.5 MG/DL (8.5-10.1) L Total Bilirubin 0.7 MG/DL (0.2-1.0) Direct Bilirubin 0.2 MG/DL (0.0-0.3) Aspartate Amino Transf (AST/SGOT) 579 U/L (15-37) H Alanine Aminotransferase (ALT/SGPT) 1284 U/L (12-78) H Alkaline Phosphatase 58 U/L (46-116) Total Creatine Kinase 5580 U/L (26-308) H Total Protein 5.5 G/DL (6.4-8.2) #L Albumin 2.3 G/DL (3.4-5.0) L Random Vancomycin Level 1.7 ug/mL Arterial Blood pH 7.390 (7.350-7.450) 7.439 (7.350-7.450) Arterial Blood Partial Pressure CO2 43.6 mmHg (35.0-45.0) 40.1 mmHg (35.0-45.0) Arterial Blood Partial Pressure O2 382.5 mmHg (75.0-100.0) H 85.0 mmHg (75.0-100.0) Arterial Blood HCO3 25.8 mmol/L (22.0-26.0) 26.6 mmol/L (22.0-26.0) H Arterial Blood Oxygen Saturation 98.9 % (95-100) 96.2 % (95-100) Arterial Blood Base Excess 0.6 (-2-2) 2.3 (-2-2) H Mario Test Positive Positive Microbiology Date/Time Source Procedure Growth Status 08/02/20 02:30 Nasopharynx SARS-CoV-2 RdRp Gene Assay - Final Complete 08/02/20 02:30 Blood Blood Culture - Preliminary Gram Positive Cocci Resulted 08/02/20 02:15 Blood Blood Culture - Preliminary Gram Positive Cocci Resulted Assessment/Plan Assessment/Plan S/p respiratory failure Gram positive bacteremia Aspiration PNA Rhabdomyolysis Amphatamine abuse Metabolic encephalopathy IVF Abx Follow up CXR Withdrawal prec/rx Replace vitamins and lytes Colton Madera MD Aug 04, 2020 02:10
--- NOTE | 2020-08-04 04:00 | NUR ---
NURSE NOTES: Patient is very agitated and trying to pull out IV and other necessary tubings. Ativan was given to relive his agitation. Reality reorientation was again provided. Patient can follow commands but is non-compliant at times, patient yelling and cursing at staff. Blood was also drawn and sent to lab. Vitals are stable, will continue to monitor.
[2020-08-04] MEDS: D5NS 1,000 ML IV SCH ×2 (04:31→10:42)
[2020-08-04 05:47] LABS: BASOPHILS % (AUTO) 0.2 % (0.0-2.0); EOSINOPHILS % (AUTO) 0.9 % (0.0-3.0); HEMATOCRIT 33.2 % (42.0-52.0); HEMOGLOBIN 11.4 G/DL (14.2-18.0); LYMPHOCYTES % (AUTO) 11.4 % (20.0-45.0); MEAN CORPUSCULAR VOLUME 88 FL (80-99); MONOCYTES % (AUTO) 7.7 % (1.0-10.0); NEUTROPHILS % (AUTO) 79.8 % (45.0-75.0); PLATELET COUNT 116 K/UL (150-450); RED BLOOD COUNT 3.75 M/UL (4.70-6.10); WHITE BLOOD COUNT 6.7 K/UL (4.8-10.8)
--- NOTE | 2020-08-04 06:00 | NUR ---
NURSE NOTES: Patient continues to be agitated and trying to pull out IV and other necessary tubings. Reality reorientation was again provided. Patient can follow commands but is non-compliant at times, patient yelling and cursing at staff. Vitals remain stable
[2020-08-04] MEDS: Vancomycin 1gm/D5W 275ml IVPB SCH ×2 (06:08)
[2020-08-04] MEDS: Piperacillin/Tazobactam 3.375 GM in NS 110 ML IVPB SCH ×2 (06:08→14:20)
[2020-08-04 06:36] LABS: ALANINE AMINOTRANSFERASE 2389 U/L (12-78); ALBUMIN 2.3 G/DL (3.4-5.0); ALBUMIN/GLOBULIN RATIO 0.7 (1.0-2.7); ALKALINE PHOSPHATASE 59 U/L (46-116); ANION GAP 9 mmol/L (5-15); ASPARTATE AMINO TRANSFERASE 745 U/L (15-37); BILIRUBIN,TOTAL 0.9 MG/DL (0.2-1.0); BLOOD UREA NITROGEN 5 mg/dL (7-18); CALCIUM 7.8 MG/DL (8.5-10.1); CARBON DIOXIDE 26 MMOL/L (21-32); CHLORIDE 106 MMOL/L (98-107); CREATININE 0.5 MG/DL (0.55-1.30); POTASSIUM 3.4 MMOL/L (3.5-5.1); SODIUM 141 MMOL/L (136-145)
--- NOTE | 2020-08-04 07:21 | NUR ---
NURSE NOTES: Received report from Kevyn GUAJARDO. Pt. currently very agitated.
--- NOTE | 2020-08-04 07:29 | NUR ---
NURSE NOTES: Pt. in bed, trying to get out. Alert, confused. No sign of distress. On 2LPM via NC. No grimacing noted. Bilateral soft wrist restrains in placed. F/C in placed patent/intact draining pale yellow colored urine. IV site at left FA #18g. and right AC #18g. and right EJ #18g. in placed patent/intact. Bed in low position, locked. Call light within reach. Will cont. to monitor.
[2020-08-04 07:51] LABS: CREATINE KINASE 7999 U/L (26-308)
--- NOTE | 2020-08-04 08:20 | NUR ---
NURSE NOTES: Pt. still very restless. Screaming wanting to smoke. Re-orient, explained to him he cannot smoke. Bed in low position, locked. Bed alarm on. Call light within reach. Will cont. to monitor.
[2020-08-04] MEDS: Pantoprazole Inj IVP SCH (08:23)
[2020-08-04] MEDS: Heparin 5000 units/ml inj SUBQ SCH ×2 (08:25→20:07)
--- NOTE | 2020-08-04 09:24 | NUR ---
NURSE NOTES: Ativan 2mg. IV start to take effect. Pt. sleeping now. V/S stable.
[2020-08-04] MEDS ORDERED: D5 1/2NS 1000ml IV ONE (10:15)
[2020-08-04] MEDS ORDERED: D5NS 1000ml IV ONE (10:15)
[2020-08-04] MEDS ORDERED: Tubing IV Secondary IV ONE (10:15)
[2020-08-04] MEDS ORDERED: D5W 275ml ONE (10:15)
--- NOTE | 2020-08-04 10:42 | NUR ---
NURSE NOTES: Pt. starting to get very agitated. Pt. trying to get OOB. Screaming "let me out of here". Ativan 2mg. IV given. Pt. v/s WNL. No SOB noted. No grimacing noted. Pt. repositioned. Will cont. to monitor.
--- NOTE | 2020-08-04 12:29 | NUR ---
NURSE NOTES: Pt. keeps on trying to get up and get OOB. Keeps on mumbling words that he wanted to take a shower. Pt. confused. V/S stable.
[2020-08-04] MEDS: Vancomycin 1.5gm/NS Premix IVPB SCH ×2 (12:37→20:06)
--- NOTE | 2020-08-04 13:30 | NUR ---
NURSE NOTES: Pt. V/S stable. Pt. alert to himself, follow simple command. Pt. most of the time remain confused.
--- NOTE | 2020-08-04 14:45 | NUR ---
NURSE NOTES: Seen by Dr. Madera with new orders.
--- NOTE | 2020-08-04 15:50 | NUR ---
NURSE NOTES: Pt. started to be restless. Able to re-direct his attention. Gave ice-chips. Pt. calmed down a little bit.
--- NOTE | 2020-08-04 17:15 | NUR ---
NURSE NOTES: Assisted with dinner. Able to finish at least 50% of his dinner tray.
--- NOTE | 2020-08-04 19:06 | NUR ---
NURSE HAND-OFF REPORT: Latest Vital Signs: Temperature 98.0 , Pulse 87 , B/P 117 /70 , Respiratory Rate 35 , O2 SAT 99 , Nasal Cannula, O2 Flow Rate 2.0 . Vital Sign Comment: WNL EKG Rhythm: Sinus Rhythm Rhythm change?: N MD Notified?: N - MD Response: Latest Lozoya Fall Score: 60 Fall Risk: High Risk Safety Measures: Call light Within Reach, Bed Alarm Zone 2, Side Rails Side Rails x3, Bed position Low and Locked. Fall Precautions: Door Sign Patient Fall Education Report given to Joselito GUAJARDO.
--- NOTE | 2020-08-04 19:38 | NUR ---
NURSE NOTES: Report received from BENNETT Crockett. Observed pt lying in the bed, agitated, trying to get out of beds. SR on alarm security or surveillance monitor noted. On room air with no sob, saturating at 100%. F/C intact and draining well, yellow urine noted. IV on L FA, SL. R AC 18G, SL, R EJ 18G, SL. No distress noted on marily wrists. Bed in the lowest position. Side rails up x3. Will continue to monitor. Addendum: 08/04/20 at 2143 by Anthony Nielsen RN On 4L NC
--- NOTE | 2020-08-04 22:00 | NUR ---
NURSE NOTES: pt lying in the bed, drowsy, pt still confused. Food offered. VS WNL. Will continue to monitor .
[2020-08-05] VITALS (9 sets, daily range): BP systolic 125–152; BP diastolic 65–93
[2020-08-05] MEDS: LORazepam Inj 2mg/ml 1ml IV PRN ×3 (00:22→20:08)
--- NOTE | 2020-08-05 01:38 | Cardiology Progress Note ---
Subjective DATE OF SERVICE: Aug 04, 2020 Defervesced +blood cultures with coag neg staph +sputum cultures with Staph aureus more calm and cooperative Objective Last 24 Hour Vital Signs Date Time Temp Pulse Resp B/P (MAP) Pulse Ox O2 Delivery O2 Flow Rate FiO2 08/05/20 00:22 91 40 130/82 97 08/05/20 00:00 Nasal Cannula 2.0 Nasal Cannula 4.0 08/04/20 21:32 89 40 148/85 97 08/04/20 21:02 76 40 140/89 100 08/04/20 20:00 85 08/04/20 20:00 Nasal Cannula 2.0 Nasal Cannula 2.0 08/04/20 20:00 98.4 76 40 140/89 (106) 100 08/04/20 19:30 96 Nasal Cannula 4.0 36 08/04/20 19:00 87 35 117/70 (86) 99 08/04/20 18:00 102 28 137/92 (107) 100 08/04/20 17:00 98.0 80 37 130/76 (94) 98 08/04/20 16:00 117 30 129/81 (97) 96 08/04/20 16:00 Nasal Cannula 2.0 Nasal Cannula 2.0 08/04/20 15:27 80 08/04/20 15:00 78 26 139/88 (105) 100 08/04/20 14:00 89 29 132/75 (94) 96 08/04/20 13:00 99.5 107 30 122/88 (99) 98 08/04/20 12:00 88 25 136/76 (96) 96 08/04/20 12:00 100 08/04/20 12:00 Nasal Cannula 2.0 Nasal Cannula 2.0 08/04/20 11:12 25 26 130/88 98 08/04/20 11:00 92 25 130/88 (102) 96 08/04/20 10:42 96 28 123/79 98 08/04/20 10:00 98 26 123/79 (94) 99 08/04/20 09:15 103 95 08/04/20 09:00 103 24 133/79 (97) 97 08/04/20 08:55 97 30 115/88 98 08/04/20 08:25 97 30 115/88 98 08/04/20 08:00 106 08/04/20 08:00 Nasal Cannula 2.0 Nasal Cannula 2.0 08/04/20 08:00 98.1 93 30 115/88 (97) 96 08/04/20 07:21 95 Nasal Cannula 3.0 32 08/04/20 07:00 96 30 123/77 (92) 98 08/04/20 06:00 107 31 137/115 (122) 99 08/04/20 05:00 89 23 126/101 (109) 100 08/04/20 04:28 102 20 145/65 96 08/04/20 04:00 99.2 94 23 129/87 (101) 100 08/04/20 04:00 Nasal Cannula 2.0 Nasal Cannula 2.0 08/04/20 04:00 82 08/04/20 03:58 94 26 123/80 100 08/04/20 03:00 102 28 126/84 (98) 97 08/04/20 02:00 96 29 125/84 (98) 98 HEENT: normal ENT inspection LUNGS: bilateral rhonchi CARDIAC: normal rate, regular rhythm, normal S1 and S2 ABDOMEN: normal bowel sounds, non tender, soft, no organomegaly, no mass EXTREMITIES: normal range of motion, non-tender, normal inspection, No edema Laboratory Tests Test 08/04/20 04:35 White Blood Count 6.7 K/UL (4.8-10.8) Red Blood Count 3.75 M/UL (4.70-6.10) L Hemoglobin 11.4 G/DL (14.2-18.0) L Hematocrit 33.2 % (42.0-52.0) L Mean Corpuscular Volume 88 FL (80-99) Mean Corpuscular Hemoglobin 30.5 PG (27.0-31.0) Mean Corpuscular Hemoglobin Concent 34.5 G/DL (32.0-36.0) Red Cell Distribution Width 11.0 % (11.6-14.8) L Platelet Count 116 K/UL (150-450) L Mean Platelet Volume 7.1 FL (6.5-10.1) Neutrophils (%) (Auto) 79.8 % (45.0-75.0) H Lymphocytes (%) (Auto) 11.4 % (20.0-45.0) L Monocytes (%) (Auto) 7.7 % (1.0-10.0) Eosinophils (%) (Auto) 0.9 % (0.0-3.0) Basophils (%) (Auto) 0.2 % (0.0-2.0) Sodium Level 141 MMOL/L (136-145) Potassium Level 3.4 MMOL/L (3.5-5.1) L Chloride Level 106 MMOL/L (98-107) Carbon Dioxide Level 26 MMOL/L (21-32) Anion Gap 9 mmol/L (5-15) Blood Urea Nitrogen 5 mg/dL (7-18) L Creatinine 0.5 MG/DL (0.55-1.30) L Estimat Glomerular Filtration Rate > 60 mL/min (>60) Glucose Level 121 MG/DL (74-106) H Calcium Level 7.8 MG/DL (8.5-10.1) L Magnesium Level 1.9 MG/DL (1.8-2.4) Total Bilirubin 0.9 MG/DL (0.2-1.0) Aspartate Amino Transf (AST/SGOT) 745 U/L (15-37) H Alanine Aminotransferase (ALT/SGPT) 2389 U/L (12-78) H Alkaline Phosphatase 59 U/L (46-116) Total Creatine Kinase 7999 U/L (26-308) H Total Protein 5.8 G/DL (6.4-8.2) L Albumin 2.3 G/DL (3.4-5.0) L Globulin 3.5 g/dL Albumin/Globulin Ratio 0.7 (1.0-2.7) L Vancomycin Level Trough 5.0 ug/mL (5.0-12.0) Microbiology Date/Time Source Procedure Growth Status 08/03/20 01:30 Sputum Gram Stain - Final Resulted 08/03/20 01:30 Sputum Culture - Preliminary Staphylococcus Aureus Resulted 08/02/20 02:30 Nasopharynx SARS-CoV-2 RdRp Gene Assay - Final Complete 08/02/20 02:30 Blood Blood Culture - Preliminary Staphylococcus Sp Coag Neg Resulted 08/02/20 02:15 Blood Blood Culture - Preliminary Staphylococcus Sp Coag Neg Resulted Assessment/Plan Assessment/Plan S/p respiratory failure S aureus, aspiration PNA Coag neg staph bacteremia vs contaminant Rhabdomyolysis Amphatamine abuse Metabolic encephalopathy IVF Abx - IV vancomycin alone pending final culture results Resp rx Follow up CXR Withdrawal prec/rx Replace vitamins and lytes Colton Madera MD Aug 05, 2020 01:38
--- NOTE | 2020-08-05 01:49 | NUR ---
NURSE NOTES: Pt agitated, keeps trying to get out of bed, combative, and confused. VS WNL. On 4L NC, saturating at 96%. Will continue to monitor.
--- NOTE | 2020-08-05 02:46 | NUR ---
NURSE NOTES: Tried to turn on pt cell phone per pt request, noted cell phone not turning on. Pt agitated, keeps trying to get out of bed constantly. Will continue to monitor .
[2020-08-05] MEDS: Vancomycin 1.5gm/NS Premix IVPB SCH ×3 (04:23→20:07)
--- NOTE | 2020-08-05 06:10 | NUR ---
NURSE NOTES: pt agitated, trying to get out of bed, confused. PRN given, reorientation done. TV on. Will continue to monitor.
[2020-08-05 06:14] LABS: BASOPHILS % (AUTO) 0.5 % (0.0-2.0); EOSINOPHILS % (AUTO) 0.4 % (0.0-3.0); HEMATOCRIT 35.3 % (42.0-52.0); HEMOGLOBIN 12.4 G/DL (14.2-18.0); MEAN CORPUSCULAR VOLUME 88 FL (80-99); MONOCYTES % (AUTO) 8.6 % (1.0-10.0); NEUTROPHILS % (AUTO) 81.5 % (45.0-75.0); PLATELET COUNT 193 K/UL (150-450); RED BLOOD COUNT 4.03 M/UL (4.70-6.10); RED CELL DISTRIBUTION WIDTH 11.4 % (11.6-14.8); WHITE BLOOD COUNT 8.5 K/UL (4.8-10.8)
--- NOTE | 2020-08-05 06:58 | NUR ---
NURSE HAND-OFF REPORT: Important Events on Shift: Agitated, confused, still trying to get out of bed. Patient Status: confused, weak, agitated. Diet: Regular Pending Orders: n Pending Results/Labs:n Pending MD notification:n Latest Vital Signs: Temperature 98.8 , Pulse 81 , B/P 147 /108 , Respiratory Rate 34 , O2 SAT 97 , Nasal Cannula, O2 Flow Rate 4.0 . Vital Sign Comment: [] EKG Rhythm: Sinus Rhythm Rhythm change?: N MD Notified?: N - MD Response: Latest Lozoya Fall Score: 60 Fall Risk: High Risk Safety Measures: Call light Within Reach, Bed Alarm Zone 2, Side Rails Side Rails x3, Bed position Low and Locked. Fall Precautions: Door Sign Patient Fall Education Report given to BENNETT Crockett.
--- NOTE | 2020-08-05 07:05 | NUR ---
NURSE NOTES: Received report from Anthony GUAJARDO.
[2020-08-05 07:17] LABS: ALANINE AMINOTRANSFERASE 1637 U/L (12-78); ALBUMIN 2.4 G/DL (3.4-5.0); ALKALINE PHOSPHATASE 115 U/L (46-116); ANION GAP 9 mmol/L (5-15); ASPARTATE AMINO TRANSFERASE 237 U/L (15-37); BILIRUBIN,DIRECT 0.4 MG/DL (0.0-0.3); BILIRUBIN,TOTAL 1.2 MG/DL (0.2-1.0); BLOOD UREA NITROGEN 6 mg/dL (7-18); CALCIUM 8.7 MG/DL (8.5-10.1); CARBON DIOXIDE 26 MMOL/L (21-32); CHLORIDE 107 MMOL/L (98-107); CREATINE KINASE 2119 U/L (26-308); CREATININE 0.5 MG/DL (0.55-1.30); POTASSIUM 3.2 MMOL/L (3.5-5.1); SODIUM 142 MMOL/L (136-145)
--- NOTE | 2020-08-05 07:26 | NUR ---
NURSE NOTES: Pt. in bed, awake, pt. very restless and trying to get OOB. Alert x 1 to himself. Confused. No sign of distress. On O2 at 2LPM via NC. Denies pain at present. F/C in placed patent/intact draining yellow colored urine. IV at left FA #18g. and right AC #18g. and right EJ #18g. in placed patent/intact. Bilateral soft wrist restrains in placed. +CMS. Bed in low position, locked. Call light within reach. Will cont. to monitor.
[2020-08-05] MEDS: Heparin 5000 units/ml inj SUBQ SCH ×2 (09:00→20:09)
--- NOTE | 2020-08-05 09:20 | NUR ---
NURSE NOTES: Patient observed bedside. Patient was very anxious and was asking for his mother. Asked plumbing drafter to call his mother Keke. Phone number was given and she was called. Mother was not aware that her son was admitted to the hospital, in fact the mother had reported that her son was missing to the police. Mother had stated that patient has never been gone from her for this long. She asked for the visiting hours and plans to visit on Thursday at approximately 1600. plumbing drafter did tell mother of patient that a friend was noted to be the emergency contact and she has immediately restricted all visitors except herself to visit her son. Mother did speak to son by way of cell phone. Patient was very tearful and apologetic for what occurred that brought him to [facility]. Pt appears very anxious and confused at other times especially when he talks to himself. The telephone number of mother has been updated in the hard copy chart.
--- NOTE | 2020-08-05 09:20 | NUR ---
NURSE NOTES: Pt. managed to removed his left hand soft wrist restrain and get OOB. Pt. confused. Able to redirect to go back to bed. Fall risk. Bed alarm on.
--- NOTE | 2020-08-05 09:50 | Diagnostic Imaging Report ---
EXAM: XR Chest, 1 View CLINICAL HISTORY: INFECT TECHNIQUE: Frontal view of the chest. COMPARISON: Chest x-ray 08/02/20 FINDINGS: Lungs: Increasing right lower lung airspace opacities/consolidation. Worsening left perihilar and retrocardiac opacities. Pleural space: Worsening small right pleural effusion. No pneumothorax. Heart: Unremarkable. No cardiomegaly. Mediastinum: Unremarkable. Bones/joints: Unremarkable. Tubes, lines and devices: Interval removal of endotracheal tube. IMPRESSION: 1. Interval removal of endotracheal tube. 2. Increasing right lower lung airspace opacities/consolidation. Worsening left perihilar and retrocardiac opacities. 3. Increased small right pleural effusion.
--- NOTE | 2020-08-05 17:29 | NUR ---
NURSE NOTES: Assisted pt. to eat dinner. Cooperative. Still confused at times. Re-orient for his surroundings.
--- NOTE | 2020-08-05 18:54 | NUR ---
NURSE HAND-OFF REPORT: Latest Vital Signs: Temperature 98.1 , Pulse 74 , B/P 133 /83 , Respiratory Rate 36 , O2 SAT 96 , Nasal Cannula, O2 Flow Rate 4.0 . Vital Sign Comment: 135/81 stable EKG Rhythm: Sinus Rhythm Rhythm change?: N MD Notified?: N - MD Response: Latest Lozoya Fall Score: 60 Fall Risk: High Risk Safety Measures: Call light Within Reach, Bed Alarm Zone 2, Side Rails Side Rails x3, Bed position Low and Locked. Fall Precautions: Door Sign Patient Fall Education Report given to Anthony GUAJARDO.
--- NOTE | 2020-08-05 19:30 | NUR ---
NURSE NOTES: Report received from BENNETT Crockett. Observed pt lying in the bed, confused, agitated, tying to get out of bed. No distress noted on marily wrists. SR on plate and weld inspector. On 4L NC, saturating at 96%. Bed bath given. F/C intact, draining erika color urine. IV on L FA intact, running D5 with 20meq KCL at 150cc/hr. Bed in the lowest position. Side rails up x3. Call light within reach. Will continue to monitor.
--- NOTE | 2020-08-05 21:21 | NUR ---
NURSE NOTES: Pt mom contacted, Keke at [phone]. Per pt mom, no one is allowed to visit pt except her. VS WNL. Will continue to monitor.
--- NOTE | 2020-08-05 23:33 | NUR ---
NURSE NOTES: Pt lying in the bed, confused. Reorientation done, still confused. Bed bath given. Oral care done. Hydration performed. Will continue to monitor.
[2020-08-06] VITALS (16 sets, daily range): BP systolic 115–149; BP diastolic 71–105
[2020-08-06] MEDS: Vancomycin 1.5gm/NS Premix IVPB SCH (00:32)
[2020-08-06] MEDS: LORazepam Inj 2mg/ml 1ml IV PRN (00:33)
--- NOTE | 2020-08-06 01:45 | NUR ---
NURSE NOTES: Pt agitated and confused. Reorientation done. VS WNL. Will continue to monitor .
--- NOTE | 2020-08-06 02:58 | Cardiology Progress Note ---
Subjective DATE OF SERVICE: Aug 05, 2020 Defervesced +blood cultures with coag neg staph - contaminant +sputum cultures with Staph aureus - MSSA more calm and cooperative Objective Last 24 Hour Vital Signs Date Time Temp Pulse Resp B/P (MAP) Pulse Ox O2 Delivery O2 Flow Rate FiO2 08/06/20 01:03 64 36 129/105 96 08/06/20 00:33 82 36 146/88 96 08/06/20 00:00 70 08/06/20 00:00 98.5 79 35 129/105 (113) 97 08/06/20 00:00 Nasal Cannula 4.0 Nasal Cannula 4.0 08/05/20 20:38 82 36 146/88 96 08/05/20 20:08 82 36 135/84 98 08/05/20 20:00 74 08/05/20 20:00 98.5 68 35 143/86 (105) 97 08/05/20 20:00 Nasal Cannula 4.0 Nasal Cannula 4.0 08/05/20 16:00 Nasal Cannula 4.0 Nasal Cannula 4.0 08/05/20 16:00 85 08/05/20 16:00 74 36 133/83 (100) 96 08/05/20 15:00 74 36 125/65 (85) 96 08/05/20 14:00 75 39 129/84 (99) 96 08/05/20 13:00 76 37 131/83 (99) 96 08/05/20 12:00 84 08/05/20 12:00 98.1 98 27 152/89 (110) 98 08/05/20 12:00 Nasal Cannula 4.0 Nasal Cannula 4.0 08/05/20 08:00 85 33 138/72 (94) 96 08/05/20 08:00 Nasal Cannula 4.0 Nasal Cannula 4.0 08/05/20 08:00 72 08/05/20 07:10 96 Nasal Cannula 4.0 36 08/05/20 06:36 81 34 147/108 97 08/05/20 06:06 100 37 149/100 97 08/05/20 04:00 Nasal Cannula 4.0 Nasal Cannula 4.0 08/05/20 04:00 82 08/05/20 04:00 98.8 78 37 148/93 (111) 97 HEENT: normal ENT inspection LUNGS: bilateral rhonchi CARDIAC: normal rate, regular rhythm, normal S1 and S2 ABDOMEN: normal bowel sounds, non tender, soft, no organomegaly, no mass EXTREMITIES: normal range of motion, non-tender, normal inspection, No edema Laboratory Tests Test 08/05/20 05:15 08/05/20 10:55 White Blood Count 8.5 K/UL (4.8-10.8) Red Blood Count 4.03 M/UL (4.70-6.10) L Hemoglobin 12.4 G/DL (14.2-18.0) L Hematocrit 35.3 % (42.0-52.0) L Mean Corpuscular Volume 88 FL (80-99) Mean Corpuscular Hemoglobin 30.7 PG (27.0-31.0) Mean Corpuscular Hemoglobin Concent 35.1 G/DL (32.0-36.0) Red Cell Distribution Width 11.4 % (11.6-14.8) L Platelet Count 193 K/UL (150-450) # Mean Platelet Volume 6.9 FL (6.5-10.1) Neutrophils (%) (Auto) 81.5 % (45.0-75.0) H Lymphocytes (%) (Auto) 9.0 % (20.0-45.0) L Monocytes (%) (Auto) 8.6 % (1.0-10.0) Eosinophils (%) (Auto) 0.4 % (0.0-3.0) Basophils (%) (Auto) 0.5 % (0.0-2.0) Sodium Level 142 MMOL/L (136-145) Potassium Level 3.2 MMOL/L (3.5-5.1) L Chloride Level 107 MMOL/L (98-107) Carbon Dioxide Level 26 MMOL/L (21-32) Anion Gap 9 mmol/L (5-15) Blood Urea Nitrogen 6 mg/dL (7-18) L Creatinine 0.5 MG/DL (0.55-1.30) L Estimat Glomerular Filtration Rate > 60 mL/min (>60) Glucose Level 115 MG/DL (74-106) H Calcium Level 8.7 MG/DL (8.5-10.1) Total Bilirubin 1.2 MG/DL (0.2-1.0) H Direct Bilirubin 0.4 MG/DL (0.0-0.3) H Aspartate Amino Transf (AST/SGOT) 237 U/L (15-37) H Alanine Aminotransferase (ALT/SGPT) 1637 U/L (12-78) H Alkaline Phosphatase 115 U/L (46-116) Total Creatine Kinase 2119 U/L (26-308) H Total Protein 6.6 G/DL (6.4-8.2) Albumin 2.4 G/DL (3.4-5.0) L Hepatitis B Surface Antigen Pending Hepatitis B Surface Antibody, Quant Pending Hepatitis C Antibody Pending Vancomycin Level Trough 6.3 ug/mL (5.0-12.0) Assessment/Plan Assessment/Plan S/p respiratory failure WILMA aureus, aspiration PNA Coag neg staph bacteremia is a contaminant Rhabdomyolysis Amphatamine abuse Metabolic encephalopathy Transaminitis - likely shock liver Hypokalemia IVF with potassium suppl Abx - downgrade to cefazolin Resp rx Withdrawal prec/rx Replace vitamins and lytes Abdominal US and follow up liver fxn Colton Madera MD Aug 06, 2020 02:58
[2020-08-06] MEDS ORDERED: LORazepam Inj 2mg/ml 1ml IV PRN (03:00)
--- NOTE | 2020-08-06 04:00 | NUR ---
NURSE NOTES: Pt still agitated, trying to get out of bed, confused, asking same questions; reorientation done, bed bath given. Will continue to monitor.
[2020-08-06 06:39] LABS: BASOPHILS % (AUTO) 0.6 % (0.0-2.0); EOSINOPHILS % (AUTO) 1.6 % (0.0-3.0); HEMATOCRIT 35.7 % (42.0-52.0); HEMOGLOBIN 12.4 G/DL (14.2-18.0); LYMPHOCYTES % (AUTO) 10.7 % (20.0-45.0); MEAN CORPUSCULAR VOLUME 88 FL (80-99); MONOCYTES % (AUTO) 11.7 % (1.0-10.0); NEUTROPHILS % (AUTO) 75.4 % (45.0-75.0); PLATELET COUNT 226 K/UL (150-450); RED BLOOD COUNT 4.06 M/UL (4.70-6.10); RED CELL DISTRIBUTION WIDTH 11.4 % (11.6-14.8); WHITE BLOOD COUNT 8.6 K/UL (4.8-10.8)
[2020-08-06] MEDS: Albuterol/Ipratropium 3ml neb HHN SCH ×3 (07:00→19:03)
--- NOTE | 2020-08-06 07:30 | NUR ---
NURSE NOTES: Patient received from Alton. Patient stable at this time. Alert but confused and very forgetful. AOx1 oriented to self. RR even and unlabored on NC 4L. Breath sounds clear. Cardiac sounds normal. Flores draining well to gravity. IV fluids as ordered. Side rails up x2, bed low and locked. VSS.
--- NOTE | 2020-08-06 07:31 | NUR ---
NURSE HAND-OFF REPORT: Important Events on Shift: agitated, restless Patient Status: agitated Diet: regular Pending Orders: n Pending Results/Labs:n Pending MD notification:n Latest Vital Signs: Temperature 98.4 , Pulse 71 , B/P 139 /90 , Respiratory Rate 35 , O2 SAT 97 , Nasal Cannula, O2 Flow Rate 4.0 . Vital Sign Comment: [] EKG Rhythm: Sinus Rhythm Rhythm change?: N MD Notified?: N - MD Response: Latest Lozoya Fall Score: 60 Fall Risk: High Risk Safety Measures: Call light Within Reach, Bed Alarm Zone 2, Side Rails Side Rails x3, Bed position Low and Locked. Fall Precautions: Door Sign Patient Fall Education Report given to BENNETT Mack.
[2020-08-06 07:48] LABS: ALANINE AMINOTRANSFERASE 1058 U/L (12-78); ALBUMIN 2.3 G/DL (3.4-5.0); ALKALINE PHOSPHATASE 112 U/L (46-116); ANION GAP 11 mmol/L (5-15); ASPARTATE AMINO TRANSFERASE 103 U/L (15-37); BILIRUBIN,DIRECT 0.2 MG/DL (0.0-0.3); BILIRUBIN,TOTAL 0.6 MG/DL (0.2-1.0); BLOOD UREA NITROGEN 7 mg/dL (7-18); CALCIUM 8.1 MG/DL (8.5-10.1); CARBON DIOXIDE 23 MMOL/L (21-32); CHLORIDE 108 MMOL/L (98-107); CREATINE KINASE 522 U/L (26-308); CREATININE 0.5 MG/DL (0.55-1.30); POTASSIUM 3.1 MMOL/L (3.5-5.1); SODIUM 142 MMOL/L (136-145)
--- NOTE | 2020-08-06 07:56 | NUR ---
NURSE NOTES: Reported potassium of 3.[address] Whitlock. He will enter orders.
--- NOTE | 2020-08-06 08:20 | NUR ---
RD ASSESSMENT & RECOMMENDATIONS SEE CARE ACTIVITY FOR COMPLETE ASSESSMENT DAILY ESTIMATED NEEDS: Needs based on Pulmonary, 72.7kg 25-30 kcals/kg 0150-9814 total kcals 1-1.5 g protein/kg 73-109 g total protein 25-30 mL/kg 1848-2240 total fluid mLs NUTRITION DIAGNOSIS: Swallowing difficulty related respiratory failure as evidenced by pt s/p extubation, on soft easy chew diet, confused, fair po intake. CURRENT DIET:Regular soft easy chew PO DIET RECOMMENDATIONS: LOW NA DIET/ Texture per MOBILE HOME PARK MANAGER ADDITIONAL RECOMMENDATIONS: 1) TF recs as above as medically able 2) Obtain HgA1C 3) Re-calibrate bed scale for accurate CBW 4) Ashleigh, BG w/ TF's 5) Rec [employer]BI[employer] PARK MANAGER eval for appropriate texture post extubation -> Fair po intake, add Ensure BID + snacks as tolerated
[2020-08-06] MEDS: ceFAZolin sod 1 GM in D5W 55 ML IVPB SCH ×3 (08:24→21:56)
[2020-08-06] MEDS: Heparin 5000 units/ml inj SUBQ SCH ×2 (08:26→20:34)
[2020-08-06] MEDS ORDERED: NS 275ml ONE (09:50)
[2020-08-06] MEDS ORDERED: D5NS 1000ml IV ONE (09:51)
--- NOTE | 2020-08-06 10:00 | NUR ---
NURSE NOTES: Patient stable.
--- NOTE | 2020-08-06 12:00 | NUR ---
NURSE NOTES: Patient stable. Attempting to get out of bed numerous times. Needs constant redirection from staffing due to forgetfulness.
[2020-08-06] MEDS ORDERED: LORazepam 1mg tab ORAL PRN (16:00)
--- NOTE | 2020-08-06 16:00 | NUR ---
NURSE NOTES: Patient cleaned. BM x1. Mom came to visit and stated that patient has been in and out of rehab programs and has been relapsing every time. Would like son to be discharged to another program
--- NOTE | 2020-08-06 16:03 | NUR ---
CASE MANAGEMENT:REVIEW 08/06/20 SI: S/P RESPIRATORY FAILURE `ASPIRATION PNA. RHABDO. AMPHETAMINE ABUSE 97.6 68 31 97% ON 4L/NC K-3.1 AST/ALT+103/1058 LAT TCK+2119 IS: IV ANCEF Q8HRS IV VANCOMYCIN Q6HRS K-DUR PO X1 DUONEB HHN Q6HRS RTC IVF+KCL@150/HR PROTONIX PO QD HEPARIN SQ Q12 : ICU STATUS PLAN: down grade to lower level of care TRANSFER TO [facility] WHEN BED AVAILABLE SPOKE WITH BLANQUITA AT [facility] T: [phone]. SHE WILL MAKE ARRANGEMENTS FOR TRANSFER
--- NOTE | 2020-08-06 16:19 | NUR ---
DISCHARGE PLANNING RECEIVED CALL FROM CARGO SERVICE SUPERVISOR BLANQUITA WITH [facility] [employer] STATING PATIENT IS OUT OF NETWORK AND BELONGS AND ONE OF THEIR CONTRACTED HOSPITALS. EITHER [facility] OR [facility] PROVIDED DR MADISON'S PHONE NUMBER FOR MD TO CONVERSATION DR MADISON HAS BEEN UPDATED AND GAVE TELEPHONE ORDER TO TRANSFER TO CONTRACTED FACILITY WHEN BED AVAILABLE [facility] WILL CONTACT THE NURSES STATION ONCE THEY HAVE SECURED A BED AT ONE OF THE ABOVE FACILITIES [facility] BLANQUITA MERCADO T: [phone] F:[phone] REF # [phone]
--- NOTE | 2020-08-06 18:00 | NUR ---
NURSE NOTES: Patient stable.
--- NOTE | 2020-08-06 19:35 | NUR ---
NURSE NOTES: Received report from Martina GUAJARDO. Patient in bed awake,alert oriented to name with period of forgetfulness. reoriented x3 and reality orientation provided. Patient with episode of attempting to get out of bed numerous times encouraged patient to verbalized needs,fears and feelings to staff. Needs constant redirection from staffing due to forgetfulness. with 1:1 sitter at bedside. bed alarm on. bed locked and in low position. TV on patient watching.IV site intact infusing D5NS KCL with 20meq at 150cc/hr. call light within easy reach. Flores intact draining. frequent visual checks continued. will continue plan of care.
--- NOTE | 2020-08-06 19:38 | NUR ---
NURSE HAND-OFF REPORT: Latest Vital Signs: Temperature 97.6 , Pulse 74 , B/P 115 /72 , Respiratory Rate 28 , O2 SAT 95 , Nasal Cannula, O2 Flow Rate 4.0 . Vital Sign Comment: STABLE EKG Rhythm: Sinus Rhythm Rhythm change?: N MD Notified?: N - MD Response: Latest Lozoya Fall Score: 60 Fall Risk: High Risk Safety Measures: Call light Within Reach, Bed Alarm Zone 2, Side Rails Side Rails x3, Bed position Low and Locked. Fall Precautions: Door Sign Patient Fall Education Report given to Jes GUAJARDO. Plan of care endorsed.
--- NOTE | 2020-08-06 21:07 | NUR ---
TRANSFER TO FLOOR: Patient transferred to [SDU room 236-2], per [Dr. Madera]. Report given to [Jaky RN]. Belongings and medications given to[Jaky RN]. Family and or S/O informed of transfer.
--- NOTE | 2020-08-06 21:10 | NUR ---
NURSE NOTES: RECEIVED REPORT FROM BENNETT PENA. PATIENT TRANSFERRED TO ROOM 236-2 FROM ICU PER MD ORDER OF DR. MADISON. PATIENT AWAKE, ORIENTED X 3 WITH FORGETFULNESS, VERBALLY RESPONSIVE AND ABLE TO MAKE NEEDS KNOWN. NO COMPLAINTS OF PAIN OR DISCOMFORT AT THIS TIME. BREATHING IS EVEN AND UNLABORED ON ROOM AIR, NO S/SX OF DISTRESS. IV SITES ON RFA, LFA PATENT, INTACT, ASYMPTOMATIC WITH IVF OF D51/2 NS W/ 20 KCL MEQ RUNNING PRESCRIBED. FOELY CATHETER DRAINING WELL TO GRAVITY, URINE CLEAR AND YELLOW IN COLOR. NOTED TO HAVE SUTURES ON RIGHT LATERAL LEG, REDNESS ON LEFT BUTTOCK, AND SACRAL REDNESS. PATIENT BELONGINGS VERIFIED WITH PATIENT, WITH JEAN AT BEDSIDE- HAS REFINERY OPERATOR [employer] IN POSSESSION, PER PATIENT HIS CELL PHONE WAS TAKEN HOME BY HIS MOM. SITTER AT BEDSIDE, HOWEVER NO AGITATION OR IMPULSIVE BEHAVIOR NOTED AT THIS TIME. FALL AND ASPIRATION PRECAUTIONS IN PLACE. BED LOCKED AND IN LOWEST POSITION, SIDERAILS UP X 3. CALL LIGHT WITHIN REACH, WILL CONTINUE TO MONITOR PER POC.
--- NOTE | 2020-08-06 21:50 | NUR ---
NURSE NOTES: RECEIVED CALL FROM TERI AT TRANSFER CENTER- PER TERI, PATIENT HAS BEEN ACCEPTED AT [facility], ROOM 208-A, UNDER CARE OF DR. JENSEN. NUMBER TO GIVE REPORT: [phone]. CALL BACK NUMBER FOR [facility] [phone].
--- NOTE | 2020-08-06 22:00 | NUR ---
NURSE NOTES: PATIENT CHANGED, PARTIAL LINEN CHANGED, REFUSED ASSISTANCE WITH REPOSITIONING.
--- NOTE | 2020-08-06 22:27 | NUR ---
NURSE NOTES: S/W LALIT AT [facility] REGARDING TRANSPORTATION FOR PATIENT. PER LALIT, TRANSPORTATION WAS NOT PREVIOUSLY SET UP. SHE WILL CALL [employer] AND CALL ME BACK WITH ETA.
--- NOTE | 2020-08-06 22:29 | NUR ---
NURSE NOTES: TRANSPORTATION WILL BE DONE BY [facility] 90 MINUTES.
--- NOTE | 2020-08-06 22:38 | NUR ---
NURSE NOTES: CALLED [facility] TO GIVE REPORT TO RECEIVING NURSE, BUT NURSE CURRENTLY AVAILABLE. PROVIDED CALL-BACK NUMBER WHEN READY.
--- NOTE | 2020-08-06 23:15 | Consultation ---
DATE OF CONSULTATION: 08/07/2020 This is a 29-year-old male with a history of substance use disorder, who was found unconscious in the street and was brought in by [employer]. The patient was given Narcan. The patient stated that he has been using methamphetamine as well as marijuana. During the evaluation, the patient was anxious. Denied any suicidal or homicidal ideation. He stated that he has been using drugs consistently for the past several months. He denies IV drug use and stated that he has been snorting methamphetamines. PAST PSYCHIATRIC HISTORY: He has a history of depression. He denies any psychiatric hospitalization. No suicide attempt. PAST MEDICAL HISTORY: Nonsignificant. ALLERGIES: No known drug allergies. SUBSTANCE ABUSE HISTORY: As I mentioned, methamphetamine and marijuana. MENTAL STATUS EXAMINATION: Alert oriented times self, place, situation. Mood is neutral. Affect is blunted. Congruent mood. Thought process is concrete. Thought content, no suicidal or homicidal ideation. Cognition is intact. Insight and judgment is fair. ASSESSMENT: [place] I Methamphetamine dependence. Cannabis dependence. Major depressive disorder. [place] II Deferred. [place] III As above. [place] IV Low. [place] V 50 PLAN: 1. Remeron 7.5 mg at bedtime. 2. Lexapro 10 mg in the morning. 3. The patient is not an imminent danger to self or others. 4. The patient should be discharged when medically cleared. Daphnie Plummer M.D. DR: BRIDGET JOB#: [id number] CC:
--- NOTE | 2020-08-06 23:17 | NUR ---
NURSE NOTES: REPORT GIVEN TO BENNETT ALBERT, AT [facility].
--- NOTE | 2020-08-06 23:45 | NUR ---
NURSE NOTES: INFORMED DR. MADISON OF TRANSFER.
[2020-08-07] VITALS: BP 138/62
[2020-08-07] MEDS: Albuterol/Ipratropium 3ml neb HHN SCH (01:11)
[2020-08-07] MEDS ORDERED: NS 275ml ONE (01:59)
[2020-08-07] MEDS ORDERED: D5W 275ml ONE (01:59)
--- NOTE | 2020-08-07 02:00 | NUR ---
NURSE NOTES: PATIENT PICKED UP BY [employer] WITH ACLS, ACCOMPANIED BY FOUR PERSONNEL. RIB BENDER TAKEN OFF, BELONGINGS LIST VERIFIED WITH PATIENT, HOWEVER PATIENT UNABLE TO SIGN. IV SITES LFA, RFA PATENT, INTACT, ASYMPTOMATIC, SALINE-LOCKED. NO COMPLAINTS OF PAIN OR DISCOMFORT. BREATHING EVEN AND UNLABORED ON ROOM AIR, NO DISTRESS NOTED. POLLACK CATHETER DRAINING WELL TO GRAVITY, URINE AND CLEAR AND YELLOW IN COLOR- EMPTIED PRIOR TO DISCHARGE. HEIDY JUNG, MOTHER, MADE AWARE- LEFT VOICEMAIL X 2.
--- NOTE | 2020-08-07 02:55 | Cardiology Progress Note ---
Subjective DATE OF SERVICE: Aug 06, 2020 Defervesced +blood cultures with coag neg staph - contaminant +sputum cultures with Staph aureus - MSSA more calm and cooperative No SOB on low flow oxygen Still with elevated LFT's Transfer planned to contracted faciliity - I have spoken with receiving MD, and discussed patient's presentation and current condition. Objective Last 24 Hour Vital Signs Date Time Temp Pulse Resp B/P (MAP) Pulse Ox O2 Delivery O2 Flow Rate FiO2 08/07/20 01:12 76 18 100 Room Air 76 18 96 08/07/20 00:00 97.9 65 28 138/62 (87) 98 08/07/20 00:00 60 08/07/20 00:00 Room Air Room Air 08/06/20 21:56 72 28 133/71 99 08/06/20 21:00 84 33 145/72 (96) 95 08/06/20 20:00 Room Air Room Air 08/06/20 20:00 74 08/06/20 20:00 98.7 84 33 145/72 (96) 95 08/06/20 19:04 72 18 100 Room Air 77 20 95 08/06/20 19:03 95 Room Air 21 08/06/20 19:00 74 34 142/95 (111) 96 08/06/20 17:33 74 28 115/72 (86) 95 08/06/20 17:00 75 28 123/86 (98) 95 08/06/20 16:00 75 28 121/71 (88) 95 08/06/20 16:00 Room Air 4.0 Nasal Cannula 08/06/20 16:00 70 08/06/20 15:00 74 28 115/72 (86) 95 08/06/20 14:00 75 29 140/88 (105) 95 08/06/20 13:35 68 18 99 Nasal Cannula 3.0 32 74 16 94 08/06/20 13:00 72 31 135/74 (94) 98 08/06/20 12:00 Room Air 4.0 Nasal Cannula 08/06/20 12:00 71 08/06/20 12:00 Nasal Cannula 4.0 Nasal Cannula 4.0 08/06/20 12:00 97.6 68 28 143/94 (110) 97 08/06/20 11:00 75 25 146/94 (111) 08/06/20 10:00 64 27 149/87 (107) 08/06/20 09:07 97 Nasal Cannula 4.0 36 08/06/20 09:00 56 23 145/102 (116) 100 08/06/20 08:00 97.4 95 32 132/95 (107) 08/06/20 08:00 74 08/06/20 08:00 Nasal Cannula 4.0 Nasal Cannula 4.0 08/06/20 08:00 Room Air 4.0 Nasal Cannula 08/06/20 04:00 98.4 71 35 139/90 (106) 97 08/06/20 04:00 Nasal Cannula 4.0 Nasal Cannula 4.0 08/06/20 04:00 71 HEENT: normal ENT inspection LUNGS: bilateral rhonchi CARDIAC: normal rate, regular rhythm, normal S1 and S2 ABDOMEN: normal bowel sounds, non tender, soft, no organomegaly, no mass EXTREMITIES: normal range of motion, non-tender, normal inspection, No edema Laboratory Tests Test 08/06/20 05:31 White Blood Count 8.6 K/UL (4.8-10.8) Red Blood Count 4.06 M/UL (4.70-6.10) L Hemoglobin 12.4 G/DL (14.2-18.0) L Hematocrit 35.7 % (42.0-52.0) L Mean Corpuscular Volume 88 FL (80-99) Mean Corpuscular Hemoglobin 30.6 PG (27.0-31.0) Mean Corpuscular Hemoglobin Concent 34.9 G/DL (32.0-36.0) Red Cell Distribution Width 11.4 % (11.6-14.8) L Platelet Count 226 K/UL (150-450) Mean Platelet Volume 6.7 FL (6.5-10.1) Neutrophils (%) (Auto) 75.4 % (45.0-75.0) H Lymphocytes (%) (Auto) 10.7 % (20.0-45.0) L Monocytes (%) (Auto) 11.7 % (1.0-10.0) H Eosinophils (%) (Auto) 1.6 % (0.0-3.0) Basophils (%) (Auto) 0.6 % (0.0-2.0) Sodium Level 142 MMOL/L (136-145) Potassium Level 3.1 MMOL/L (3.5-5.1) L Chloride Level 108 MMOL/L (98-107) H Carbon Dioxide Level 23 MMOL/L (21-32) Anion Gap 11 mmol/L (5-15) Blood Urea Nitrogen 7 mg/dL (7-18) Creatinine 0.5 MG/DL (0.55-1.30) L Estimat Glomerular Filtration Rate > 60 mL/min (>60) Glucose Level 156 MG/DL (74-106) H Calcium Level 8.1 MG/DL (8.5-10.1) L Magnesium Level 1.8 MG/DL (1.8-2.4) Total Bilirubin 0.6 MG/DL (0.2-1.0) Direct Bilirubin 0.2 MG/DL (0.0-0.3) Aspartate Amino Transf (AST/SGOT) 103 U/L (15-37) H Alanine Aminotransferase (ALT/SGPT) 1058 U/L (12-78) H Alkaline Phosphatase 112 U/L (46-116) Total Creatine Kinase 522 U/L (26-308) H Total Protein 6.2 G/DL (6.4-8.2) L Albumin 2.3 G/DL (3.4-5.0) L Assessment/Plan Assessment/Plan S/p respiratory failure WILMA aureus, aspiration PNA Coag neg staph bacteremia is a contaminant Rhabdomyolysis Amphatamine abuse Metabolic encephalopathy Transaminitis - likely shock liver Hypokalemia IVF with potassium suppl Abx - downgraded to cefazolin Resp rx Withdrawal prec/rx Replace vitamins and lytes Abdominal US and follow up liver fxn Stable for transfer to a contracted facility Colton Madera MD Aug 07, 2020 02:55
--- NOTE | 2020-08-07 22:48 | Psych Consult Progress Note ---
Psychiatry Progress Note Psychiatry Progress Note Neurological/Psychiatric: Reports: anxiety, depressed, emotional problems Allergies: Coded Allergies: UNABLE TO ASSESS (Unverified , 08/02/20) patient is not conscious Objective Data Height (Feet): 5 Height (Inches): 10.00 Weight (Pounds): 160 Additional Comments: Alert oriented times self, place, situation. Mood is neutral. Affect is blunted. Congruent mood. Thought process is concrete. Thought content, no suicidal or homicidal ideation. Cognition is intact. Insight and judgment is fair. ASSESSMENT: Hamilton I Methamphetamine dependence. Cannabis dependence. Major depressive disorder. Hamilton II Deferred. Hamilton III As above. Hamilton IV Low. Hamilton V 50 PLAN: 1. Remeron 7.5 mg at bedtime. 2. Lexapro 10 mg in the morning. 3. The patient is not an imminent danger to self or others. 4. The patient should be discharged when medically cleared Daphnie Plummer MD Aug 07, 2020 22:48
--- NOTE | 2020-08-08 14:10 | Discharge Summary ---
Discharge Summary Discharge Summary _ DATE OF ADMISSION: 08/02/2020 DATE OF DISCHARGE: 08/07/2020 DISCHARGED BY: REASON FOR ADMISSION: 29 years old male was brought by [employer] as Huey Calix after being found unconscious in the front seat of his car. Overdose was suspected. Patient received Narcan. Upon evaluation patient was tachycardic and tachypneic . Patient remained altered. Urine toxicology screen was positive for amphetamine and marijuana. Laboratory work-up revealed no leukocytosis , stable hemoglobin, hematocrit and platelet count. Urinalysis revealed no evidence of urinary tract infection. Sodium 133 , chloride 98, glucose 174. BUN 42, creatinine 2.0. Albumin 3.9. AST 834, ALT 1144. CK 6771. EKG revealed sinus tachycardia , no acute ischemic changes. Chest x-ray revealed consolidation in the right lung base , suspicious for infiltrate. Probable small right parapneumonic effusion. No pneumothorax. Chest CT revealed severe consolidation in the lung bases , consistent with severe multifocal infiltrates , probably aspiration. CT of the head revealed no acute intracranial hemorrhage, midline shift or mass- effect. Rapid COVID-19 in emergency department was negative. ABG revealed acute respiratory acidosis with pH 7.24, PCO2 61. Patient subsequently was orally intubated , given altered mental status and acute respiratory acidosis. Patient subsequently admitted to ICU for further management. CONSULTANTS: psychiatrist [facility]: Patient admitted to ICU. Ventilator support and pulmonary toilet provided. Patient was followed -up with chest x-ray and ABG . Settings titrated based on ABG results. Patient provided with IV fluids and empiric antibiotics. Blood culture revealed Staph epidermidis and Staph capitis, likely contaminant. Sputum culture revealed Staph aureus. DVT and GI prophylaxis provided. As patient clinically improved, patient was able to be extubated . Supplemental oxygen provided and titrated to pulse oximetry above 92%. Withdrawal precautions maintained. Renal parameters and electrolytes were closely monitored, electrolytes corrected as needed. Prior to transfer BUN from 42 down to 7 and creatinine from 2.0 down to 0.5. CK trended down from initial 6771 down to 522. AST from 579 down to 103 and ALT from 1284 down to 1058. Hepatitis panel pending at the time of this dictation. Patient clinically improved. Mentation improved, and patient was becoming more calm and cooperative. No shortness of breath on the low-flow oxygen. Psychiatrist seen and evaluated patient. Per psychiatrist patient have methamphetamine and cannabis dependence and major depressive disorder. Psychiatric medication regimen was optimized . Per psychiatrist patient was not at imminent danger to self or others and should be discharged when medically stable. Transfer was arranged to contracted facility . Patient was stable for transfer. FINAL DIAGNOSES: Amphetamine overdose and abuse Amphetamine and cannabis dependence Acute respiratory failure requiring intubation, status post extubation Acute respiratory acidosis Aspiration pneumonia Lactic acidosis Acute metabolic encephalopathy Rhabdomyolysis Transaminitis, likely shock liver Hypokalemia Acute kidney injury -resolved Major depressive disorder DISCHARGE MEDICATIONS: See Medication Reconciliation list. DISCHARGE INSTRUCTIONS: Patient was transferred to contracted facility as per patient insurance via [facility]. Patient was stable for transfer. I have been assigned to dictate discharge summary for this account. I was not involved in the patient's management. Delfina Grover NP Aug 08, 2020 14:10
== END 2020-08-07 02:00 | DRG 812 ==
LOC: EDBD 00:22 → EMR 00:40 → 2W 03:27 → EDBEDREQSVC 03:57 → EDBEDREQ 03:58 → ICU 08:09 → 2W 08-06 21:11
PROC: 5A1935Z Respiratory Ventilation, Less than 24 Consecutive Hours (ICD-10-PCS; principal; 2020-08-02)
DX: T43.621A Poisoning by amphetamines, accidental (unintentional), initial encounter (principal); K72.00 Acute and subacute hepatic failure without coma; J69.0 Pneumonitis due to inhalation of food and vomit; J96.00 Acute respiratory failure, unspecified whether with hypoxia or hypercapnia; N17.9 Acute kidney failure, unspecified; M62.82 Rhabdomyolysis; G93.1 Anoxic brain damage, not elsewhere classified; G93.41 Metabolic encephalopathy; F32.9 Major depressive disorder, single episode, unspecified; F15.20 Other stimulant dependence, uncomplicated; F12.20 Cannabis dependence, uncomplicated; E87.6 Hypokalemia
CPT/HCPCS: 31500; 36415; 70450; 71045; 71250; 74018; 80048; 80053; 80076; 80202; 80307; 81003; 82550; 82803; 83605; 83735; 85025; 86803; 87040; 87070; 87181; 87205; 87340; 87517; 94002; 94003; 94640; 96361; 96365; 96375; 96376; 99291; G0480; J2310; J7030; J7620; J8499; U0002